=== PATIENT | female | born 1970 | race African-American/Black ===

== ENCOUNTER 2016-04-19 18:46 | Emergency (ER) | payer MEDICAID ==
[2016-04-19] MEDS ORDERED: ONDANSETRON 4 MG TAB.RAPDIS PO ONE (20:03)
--- NOTE | 2016-04-19 20:03 | ER Document Report ---
ED Medical Screen (RME) - General Chief Complaint: High Blood Sugar Stated Complaint: BLOOD SUGAR ISSUES,HEAD PAIN Notes: 45 yo IDDM, HTN, PTSD, Depresion c/o fluctuating blood sugars today. Highest blood sugar today 275. c/o headache, with left eye pain. + nausea, no vomiting. no fever TRAVEL OUTSIDE OF THE [place] IN LAST 30 DAYS: No - Related Data Allergies/Adverse Reactions: oxycodone HCl [From Percocet] Allergy (Severe, Verified 10/05/14 13:32) resp azithromycin [From Zithromax] Allergy (Intermediate, Verified 10/05/14 13:32) resp codeine phosphate [From Codeine Phosphate Soluble] Allergy (Intermediate, Verified 10/05/14 13:32) resp hydrocodone Allergy (Mild, Verified 10/05/14 13:32) Anaphylaxis hydrocodone bitartrate [From Vicodin] Allergy (Verified 10/05/14 13:32) resp Past Medical History - Social History Family history: Arthritis, CVA, DM, Hyperlipidemia, Hypertension, Malignancy, Thyroid Disfunction - Past Medical History Cardiac Medical History: Reports: Hx Hypertension Pulmonary Medical History: Reports: Hx Asthma Neurological Medical History: Reports: Hx Cerebrovascular Accident - 2005, Hx Migraine Endocrine Medical History: Reports: Hx Diabetes Mellitus Type 2 GI Medical History: Reports: Hx Gastroesophageal Reflux Disease Musculoskeltal Medical History: Reports Hx Arthritis - fingers, NECK, Reports Hx Musculoskeletal Trauma Psychiatric Medical History: Reports: Hx Anxiety, Hx Bipolar Disorder, Hx Depression, Hx Post Traumatic Stress Disorder Traumatic Medical History: Reports: Hx Fractures Past Surgical History: Reports: Hx Abdominal Surgery - EXPLORATORY, Hx Bowel Surgery, Hx Section - x4, Hx Cholecystectomy, Other - Multiple fatty tumors removed from different areas of her body all benign. Denies: Hx Pacemaker - Immunizations Immunizations up to date: Yes Hx Diphtheria, Pertussis, Tetanus Vaccination: Yes - UNSURE
[2016-04-19 20:40] LABS: ABSOLUTE EOSINOPHILS # (AUTO) 0.2 10^3/uL (0.0-0.6); ABSOLUTE LYMPHOCYTES (AUTO) 3.7 10^3/uL (0.5-4.7); ABSOLUTE MONOCYTES (AUTO) 0.5 10^3/uL (0.1-1.4); ABSOLUTE NEUT (AUTO) 3.9 10^3/uL (1.7-8.2); BASOPHILS % (AUTO) 0.5 % (0-2); EOSINOPHILS % (AUTO) 2.6 % (0-6); HEMATOCRIT 36.3 % (36.0-47.0); HGB HCT DIFFERENCE -0.3; LYMPHOCYTES % (AUTO) 44.7 % (13-45); MEAN CORPUSCULAR HEMOGLOBIN 28.6 pg (27.0-33.4); MEAN CORPUSCULAR HGB CONC 32.9 g/dL (32.0-36.0); MEAN CORPUSCULAR VOLUME 87 fl (80-97); MONOCYTES % (AUTO) 5.6 % (3-13); RED BLOOD COUNT 4.18 10^6/uL (3.72-5.28); SEGMENTED NEUTROPHILS % (AUTO) 46.6 % (42-78); WHITE BLOOD COUNT 8.3 10^3/uL (4.0-10.5)
[2016-04-19 20:49] LABS: APPEARANCE,URINE CLOUDY; BILIRUBIN,URINE NEGATIVE (NEGATIVE); GLUCOSE, URINE 50 mg/dL (NEGATIVE); KETONES,URINE NEGATIVE (NEGATIVE); LEUKOCYTE ESTERASE,URINE MODERATE (NEGATIVE); NITRITE,URINE POSITIVE (NEGATIVE); PROTEIN,URINE NEGATIVE (NEGATIVE); URINE SPECIFIC GRAVITY 1.013; UROBILINOGEN,URINE NEGATIVE mg/dL (<2.0)
[2016-04-19 21:01] LABS: BLOOD UREA NITROGEN 8 mg/dL (7-20); CALCIUM 9.2 mg/dL (8.4-10.2); CREATININE RESULT 0.71 mg/dL (0.52-1.25); GLUCOSE 200 mg/dL (75-110)
[2016-04-19 21:02] LABS: ALANINE AMINOTRANSFERASE 42 U/L (9-52); ALBUMIN 3.6 g/dL (3.5-5.0); ALKALINE PHOSPHATASE 95 U/L (38-126); ANION GAP 12 (5-19); ASPARTATE AMINO TRANSFERASE 21 U/L (14-36); BILIRUBIN,TOTAL 0.3 mg/dL (0.2-1.3); CARBON DIOXIDE 26 mmol/L (22-30); CHLORIDE 100 mmol/L (98-107); POTASSIUM 3.9 mmol/L (3.6-5.0); SODIUM 138.4 mmol/L (137-145); TOTAL PROTEIN 7.5 g/dL (6.3-8.2)
--- NOTE | 2016-04-19 23:40 | ER Document Report ---
ED General <ZAHRA ARTHUR - Last Filed: 04/20/16 00:16> - General Time seen by provider: 23:35 Mode of Arrival: Ambulatory Information source: Patient TRAVEL OUTSIDE OF THE [place] IN LAST 30 DAYS: No - HPI Onset: This afternoon - see HPI Onset/Duration: Sudden <SIMI SPRINGER - Last Filed: 04/20/16 01:25> - General Chief Complaint: High Blood Sugar Stated Complaint: BLOOD SUGAR ISSUES,HEAD PAIN Notes: Patient is a 45 year old female presenting to the emergency department complaining of a high blood glucose. Patient states that her blood glucose was 215 at home this afternoon. Patient states she took 37 units of levemier and mataformin 500mg PO at 11:00 today. Patient states her blood glucose has not gone down since taking these medications. Patient also reports headache, eye pain, and dizziness from her elevated blood glucose. Patient was seen on 03/24 for a UTI and was sent home with Macrobid. Patient is also nauseous. Patient's PCP is Dr. Stover in [place]; patient states that her PCP controls her diabetes care. (SIMI SPRINGER) - Related Data Allergies/Adverse Reactions: oxycodone HCl [From Percocet] Allergy (Severe, Verified 10/05/14 13:32) resp azithromycin [From Zithromax] Allergy (Intermediate, Verified 10/05/14 13:32) resp codeine phosphate [From Codeine Phosphate Soluble] Allergy (Intermediate, Verified 10/05/14 13:32) resp hydrocodone Allergy (Mild, Verified 10/05/14 13:32) Anaphylaxis hydrocodone bitartrate [From Vicodin] Allergy (Verified 10/05/14 13:32) resp Past Medical History - General Information source: Patient - Social History Smoking Status: Never Smoker Cigarette use (# per day): No Chew tobacco use (# tins/day): No Frequency of alcohol use: Rare Drug Abuse: None Family History: Arthritis, CVA, DM, Hyperlipidemia, Hypertension, Malignancy, Thyroid Disfunction - Past Medical History Cardiac Medical History: Reports: Hx Hypertension Pulmonary Medical History: Reports: Hx Asthma Neurological Medical History: Reports: Hx Cerebrovascular Accident - 2005, Hx Migraine Endocrine Medical History: Reports: Hx Diabetes Mellitus Type 2 GI Medical History: Reports: Hx Gastroesophageal Reflux Disease Musculoskeltal Medical History: Reports Hx Arthritis - fingers, NECK, Reports Hx Musculoskeletal Trauma Psychiatric Medical History: Reports: Hx Anxiety, Hx Bipolar Disorder, Hx Depression, Hx Post Traumatic Stress Disorder Traumatic Medical History: Reports: Hx Fractures Past Surgical History: Reports: Hx Abdominal Surgery - EXPLORATORY, Hx Bowel Surgery, Hx Section - x4, Hx Cholecystectomy, Other - Multiple fatty tumors removed from different areas of her body all benign. Denies: Hx Pacemaker - Immunizations Immunizations up to date: Yes Hx Diphtheria, Pertussis, Tetanus Vaccination: Yes - UNSURE <SIMI SPRINGER - Last Filed: 04/20/16 01:25> Review of Systems - Review of Systems Constitutional: See HPI, Malaise EENT: See HPI, Eye pain Cardiovascular: See HPI, Dizziness Respiratory: No symptoms reported Gastrointestinal: No symptoms reported Genitourinary: No symptoms reported Female Genitourinary: No symptoms reported Musculoskeletal: No symptoms reported Skin: No symptoms reported Hematologic/Lymphatic: See HPI Neurological/Psychological: See HPI, Headaches -: Yes All other systems reviewed and negative <SIMI SPRINGER - Last Filed: 04/20/16 01:25> Physical Exam - Vital signs Interpretation: Normal - General General appearance: Appears well, Alert In distress: None - HEENT Head: Normocephalic, Atraumatic Eyes: Normal Pupils: PERRL Mucous membranes: Normal - Respiratory Respiratory status: No respiratory distress Chest status: Nontender Breath sounds: Normal Chest palpation: Normal - Cardiovascular Rhythm: Regular Heart sounds: Normal auscultation - Abdominal Inspection: Obese Distension: No distension Bowel sounds: Normal Tenderness: Nontender Organomegaly: No organomegaly - Back Back: Normal, Nontender - Extremities General upper extremity: Normal inspection, Normal ROM, Normal strength General lower extremity: Normal inspection, Normal ROM, Normal strength - Neurological Neuro grossly intact: Yes Cognition: Normal Orientation: AAOx4 [place] Coma Scale Eye Opening: Spontaneous [place] Coma Scale Verbal: Oriented Sofi Coma Scale Motor: Obeys Commands Sofi Coma Scale Total: 15 Speech: Normal - Psychological Associated symptoms: Normal affect, Normal mood - Skin Skin Temperature: Warm Skin Moisture: Dry <SIMI SPRINGER - Last Filed: 04/20/16 01:25> - Vital signs Vitals: Temp Pulse Resp BP Pulse Ox 98.0 F 83 20 174/96 H 98 04/19/16 19:41 04/19/16 19:41 04/19/16 19:41 04/19/16 19:41 04/19/16 19:41 Course - Laboratory Result Diagrams: 04/19/16 20:15 04/19/16 20:15 <ZAHRA ARTHUR - Last Filed: 04/20/16 00:16> - Laboratory Result Diagrams: 04/19/16 20:15 04/19/16 20:15 <SIMI SPRINGER - Last Filed: 04/20/16 01:25> - Re-evaluation Re-evalutation: 04/20/16 00:16 Patient's blood pressure is elevated this evening. It has been elevated since since during her . She told the nurse tonight she doesn't have a history of high blood pressure, however review her record shows this is not true. He is again encouraged to follow-up with her primary care doctor or her [facility] doctor and be treated. (ZAHRA ARTHUR) - Vital Signs Vital signs: Temp Pulse Resp BP Pulse Ox 98.0 F 75 15 168/95 H 100 04/19/16 19:41 04/20/16 00:12 04/20/16 00:12 04/20/16 00:12 04/20/16 00:12 - Laboratory Laboratory results interpreted by me: 04/19/16 04/19/16 20:15 20:15 Glucose 200 H Urine Glucose (UA) 50 H Urine Blood SMALL H Urine Nitrite POSITIVE H Ur Leukocyte Esterase MODERATE H (ZAHRA ARTHUR) (SIMI SPRINGER) Scribe Documentation - Scribe Written by Scribe:: Simi Springer (04/20/16 00:10) acting as scribe for :: Agus <SIMI SPRINGER - Last Filed: 04/20/16 01:25>
[2016-04-19] MEDS ORDERED: CEPHALEXIN 500 MG CAPSULE PO ONE (23:41)
[2016-04-20 00:31] VITALS: BP 174/96
== END 2016-04-20 00:23 | disposition home or self-care (01) ==
LOC: ER 18:46
DX: N39.0 Urinary tract infection, site not specified (principal); R73.9 Hyperglycemia, unspecified; R03.0 Elevated blood-pressure reading, without diagnosis of hypertension; R51 Headache
CPT/HCPCS: 99283; 36415; 87086; 85025; 87088; 80053; 81001; 87186; S0119

== ENCOUNTER 2017-05-16 12:26 | Emergency (ER) | payer MEDICAID ==
[2017-05-16] MEDS ORDERED: KETOROLAC TROMETHAMINE 60 MG/2 ML SDV IM ONE (12:54)
--- NOTE | 2017-05-16 13:08 | ER Document Report ---
HPI - HPI Patient complains to provider of: Cough, sore throat Onset: Other - 4 days Onset/Duration: Persistent Quality of pain: Achy Pain Level: 4 Context: Patient presents with cough, congestion and sore throat for the past 4 days. Patient complains of voice hoarseness. Patient complains of reductive cough. Patient does report recent sick contacts. Associated Symptoms: Productive cough, Rhinnorhea, Sore throat. denies: Chest pain, Earache, Fever Exacerbated by: Coughing Relieved by: Denies Similar symptoms previously: Yes Recently seen / treated by doctor: No - ROS ROS below otherwise negative: Yes Systems Reviewed and Negative: Yes All other systems reviewed and negative - CONSTITUTIONAL Constitutional: REPORTS: Chills. DENIES: Fever - EENT EENT: REPORTS: Sore Throat, Nasal Drainage-Clear, Congestion - NEURO Neurology: DENIES: Headache - CARDIOVASCULAR Cardiovascular: DENIES: Chest pain - RESPIRATORY Respiratory: REPORTS: Coughing. DENIES: Trouble Breathing - GASTROINTESTINAL Gastrointestinal: DENIES: Nausea, Patient vomiting, Diarrhea - REPRODUCTIVE Reproductive: DENIES: : - MUSCULOSKELETAL Musculoskeletal: DENIES: Back Pain, Neck Pain - DERM Skin Color: Normal Skin Problems: None Past Medical History - General Information source: Patient - Social History Smoking Status: Never Smoker Frequency of alcohol use: None Drug Abuse: None Occupation: None Lives with: Family Family History: Arthritis, CVA, DM, Hyperlipidemia, Hypertension, Malignancy, Thyroid Disfunction - Past Medical History Cardiac Medical History: Reports: Hx Hypertension Pulmonary Medical History: Reports: Hx Asthma Neurological Medical History: Reports: Hx Cerebrovascular Accident - 2005, Hx Migraine Endocrine Medical History: Reports: Hx Diabetes Mellitus Type 2 GI Medical History: Reports: Hx Gastroesophageal Reflux Disease Musculoskeltal Medical History: Reports Hx Arthritis - fingers, NECK, Reports Hx Musculoskeletal Trauma Psychiatric Medical History: Reports: Hx Anxiety, Hx Bipolar Disorder, Hx Depression, Hx Post Traumatic Stress Disorder Traumatic Medical History: Reports: Hx Fractures Past Surgical History: Reports: Hx Abdominal Surgery - EXPLORATORY, Hx Bowel Surgery, Hx Section - x4, Hx Cholecystectomy, Other - Multiple fatty tumors removed from different areas of her body all benign. Denies: Hx Pacemaker - Immunizations Immunizations up to date: Yes Hx Diphtheria, Pertussis, Tetanus Vaccination: Yes - UNSURE Vertical Provider Document - CONSTITUTIONAL Agree With Documented VS: Yes Exam Limitations: No Limitations General Appearance: WD/WN, No Apparent Distress - INFECTION CONTROL TRAVEL OUTSIDE OF THE [place] IN LAST 30 DAYS: No - HEENT HEENT: Atraumatic, Normocephalic, Pharyngeal Tenderness, Pharyngeal Erythema. negative: Pharyngeal Exudate, Tympanic Membrane Red, Tympanic Membrane Bulging Notes: voice hoarse - NECK Neck: Lymphadenopathy-Left, Lymphadenopathy-Right - RESPIRATORY Respiratory: Breath Sounds Normal, No Respiratory Distress, Chest Non-Tender. negative: Rales, Rhonchi, Wheezing O2 Sat by Pulse Oximetry: 96 - CARDIOVASCULAR Cardiovascular: Regular Rate, Regular Rhythm, No Murmur - GI/ABDOMEN Gastrointestinal: Abdomen Soft - BACK Back: Normal Inspection - MUSCULOSKELETAL/EXTREMETIES Musculoskeletal/Extremeties: MAEW, FROM - NEURO Level of Consciousness: Awake, Alert, Appropriate Motor/Sensory: No Motor Deficit - DERM Integumentary: Warm, Dry, No Rash Course - Re-evaluation Re-evalutation: 05/16/17 14:[address] Resendiz regarding patient presentation. Patient with onset of symptoms 4 days ago. Patient has been afebrile and vital signs have been stable. Patient nontoxic in appearance. Will treat for presumptive pneumonia at this time. Good return precautions given to patient. - Vital Signs Vital signs: Temp Pulse Resp BP Pulse Ox 98.8 F 97 20 137/75 H 96 05/16/17 12:34 05/16/17 12:34 05/16/17 12:34 05/16/17 12:34 05/16/17 12:34 - Laboratory Laboratory results interpreted by me: 05/16/17 14:07 Labs- Entire Visit 05/16/17 13:00 Group A Strep Rapid NEGATIVE - Diagnostic Test Radiology reviewed: Reports reviewed Discharge - Discharge Clinical Impression: Sore throat Pneumonia Qualifiers: Pneumonia type: due to unspecified organism Laterality: bilateral Lung location : lower lobe of lung Qualified Code(s): J18.9 - Pneumonia, unspecified organism Condition: Stable Disposition: HOME, SELF-CARE Instructions: Doxycycline ([facility]), Pneumonia ([facility]), Rocephin ([facility]) Additional Instructions: Return immediately for any new or worsening symptoms Followup with your primary care provider, call tomorrow to make a followup appointment Prescriptions: Doxycycline Hyclate 100 mg PO BID #20 capsule Referrals: KATHIE GONZALEZ NP [Primary Care Provider] - Follow up tomorrow
--- NOTE | 2017-05-16 13:39 | RADIOLOGY REPORT (SQ) ---
EXAM DESCRIPTION: CHEST PA/LAT COMPLETED DATE/TIME: 05/16/2017 1:21 pm REASON FOR STUDY: cough COMPARISON: Two-view chest 07/11/2015 PA chest 04/17/2014 EXAM PARAMETERS: NUMBER OF VIEWS: two views TECHNIQUE: Digital Frontal and Lateral radiographic views of the chest acquired. RADIATION DOSE: NA LIMITATIONS: none FINDINGS: LUNGS AND PLEURA: Trace bilateral pleural effusions left greater than right. Minimal bibasilar airspace disease left greater than right, atelectasis versus pneumonia. No pneumothorax MEDIASTINUM AND HILAR STRUCTURES: No masses or contour abnormalities. HEART AND VASCULAR STRUCTURES: Borderline cardiomegaly BONES: No acute findings. HARDWARE: Clips right upper quadrant post cholecystectomy OTHER: No other significant finding. IMPRESSION: Trace bilateral pleural effusions left greater than right Bibasilar airspace disease atelectasis versus pneumonia, left greater than right TECHNICAL DOCUMENTATION: JOB ID: [id number] [employer]- All Rights Reserved
[2017-05-16] MEDS ORDERED: DOXYCYCLINE HYCLATE 100 MG TABLET PO ONE (13:57)
[2017-05-16] MEDS ORDERED: CEFTRIAXONE INJ 1000 MG VIAL IM ONE (13:57)
[2017-05-16] MEDS ORDERED: LIDOCAINE 1% INJ-PF (10 MG/ML) 30 ML SDV INJ ONE (13:57)
[2017-05-16 14:22] VITALS: BP 108/68
== END 2017-05-16 14:45 | disposition home or self-care (01) ==
LOC: ER 12:26
DX: J18.9 Pneumonia, unspecified organism (principal); J02.9 Acute pharyngitis, unspecified; R59.0 Localized enlarged lymph nodes; R05 Cough; R49.0 Dysphonia; J34.89 Other specified disorders of nose and nasal sinuses; I10 Essential (primary) hypertension; J45.909 Unspecified asthma, uncomplicated; E11.9 Type 2 diabetes mellitus without complications
CPT/HCPCS: 99284; 96372; 87070; 87880; 71046; J3490 ×2; J1885; J0696

== ENCOUNTER → 2017-07-30 | Outpatient (CLI) | payer MEDICAID ==
--- NOTE | 2017-07-30 13:21 | RADIOLOGY REPORT (SQ) ---
EXAM DESCRIPTION: HIP BILATERAL COMPLETED DATE/TIME: 07/30/2017 11:55 am REASON FOR STUDY: HIP PAIN M54.16 RADICULOPATHY, LUMBAR REGION COMPARISON: None. NUMBER OF VIEWS: Two views TECHNIQUE: AP pelvis and additional frog-leg view of both hips. LIMITATIONS: None. FINDINGS: MINERALIZATION: Normal. HIPS: No acute fracture or dislocation. No worrisome bone lesions. PELVIS AND SACRUM: No acute fracture or dislocation. No worrisome bone lesions. PUBIS AND ISCHIUM: No acute fracture. LOWER LUMBAR SPINE: No significant findings as visualized. SOFT TISSUES: No findings. OTHER: No other significant finding. IMPRESSION: NEGATIVE STUDY OF THE PELVIS AND HIPS. TECHNICAL DOCUMENTATION: JOB ID: [id number] [employer]- All Rights Reserved Reading location - IP/workstation name: [email or web address]
--- NOTE | 2017-07-30 15:19 | RADIOLOGY REPORT (SQ) ---
EXAM DESCRIPTION: NM BONE SCAN LIMITED COMPLETED DATE/TIME: 07/30/2017 2:54 pm REASON FOR STUDY: RADICULOPATHY, LUMBAR REGION M54.16 RADICULOPATHY, LUMBAR REGION COMPARISON: Hip radiographs 07/30/2017, additional prior imaging studies. RADIONUCLIDE AND DOSE: 20 millicuries Tc99m HDP. The route of agent administration: Intravenous. ADDITIONAL DRUGS AND DOSES: None. TECHNIQUE: Routine delayed images at 3 hours post radionuclide injection acquired of the bony skelet on including anterior and posterior whole-body projections and additional focused images as needed. LIMITATIONS: None. FINDINGS: BONES: Normal visualization without areas of photopenia or increased bony uptake of radiop harmaceutical. KIDNEYS: Symmetric excretion without obstruction. OTHER: No other significant finding. IMPRESSION: NORMAL BONE SCAN. COMMENT: Quality measure 147: Current bone scan is compared with any available plain radiographs, p rior bone scans, and CT/MRI. TECHNICAL DOCUMENTATION: JOB ID: [id number] [employer]- All Rights Reserved Reading location - IP/workstation name: [email or web address]
== END ==
LOC: RAD 10:51
PROVIDERS: ATTEND Specialist
DX: M54.16 Radiculopathy, lumbar region (principal); M25.552 Pain in left hip; M25.551 Pain in right hip
CPT/HCPCS: 73522; 78305; A9561; Q9969

== ENCOUNTER 2017-08-19 22:56 | Emergency (ER) | payer MEDICAID ==
--- NOTE | 2017-08-20 00:11 | ER Document Report ---
ED General - General Chief Complaint: Possible Overdose Stated Complaint: POSSIBLE OVERDOSE Time Seen by Provider: 08/19/17 23:50 Notes: Patient is a 46-year-old female who presents with complaint of accidentally taking double doses of all her nighttime medications. This includes Ativan, Phenergan, trazodone, and Actos. Patient says that she had forgotten that she had taken her medication and took a second dosage of all these medications at night. She notes she was feeling more sleepy than usual then realized what she had done. She had no intention of hurting himself. She did eat dinner tonight. She denies any vomiting or diarrhea. She denies any pain. She states she just feels sleepy. TRAVEL OUTSIDE OF THE [place] IN LAST 30 DAYS: No - Related Data Allergies/Adverse Reactions: oxycodone HCl [From Percocet] Allergy (Severe, Verified 08/19/17 23:10) resp azithromycin [From Zithromax] Allergy (Intermediate, Verified 08/19/17 23:10) resp codeine phosphate [From Codeine Phosphate Soluble] Allergy (Intermediate, Verified 08/19/17 23:10) resp hydrocodone Allergy (Mild, Verified 08/19/17 23:10) Anaphylaxis hydrocodone bitartrate [From Vicodin] Allergy (Verified 08/19/17 23:10) resp Past Medical History - Social History Smoking Status: Unknown if Ever Smoked Frequency of alcohol use: None Drug Abuse: None Family History: Arthritis, CVA, DM, Hyperlipidemia, Hypertension, Malignancy, Thyroid Disfunction - Past Medical History Cardiac Medical History: Reports: Hx Hypertension Pulmonary Medical History: Reports: Hx Asthma Neurological Medical History: Reports: Hx Cerebrovascular Accident - 2005, Hx Migraine Endocrine Medical History: Reports: Hx Diabetes Mellitus Type 2 Renal/ Medical History: Denies: Hx Peritoneal Dialysis GI Medical History: Reports: Hx Gastroesophageal Reflux Disease Musculoskeltal Medical History: Reports Hx Arthritis - fingers, NECK, Reports Hx Musculoskeletal Trauma Psychiatric Medical History: Reports: Hx Anxiety, Hx Bipolar Disorder, Hx Depression, Hx Post Traumatic Stress Disorder Traumatic Medical History: Reports: Hx Fractures Past Surgical History: Reports: Hx Abdominal Surgery - EXPLORATORY, Hx Bowel Surgery, Hx Section - x4, Hx Cholecystectomy, Other - Multiple fatty tumors removed from different areas of her body all benign. Denies: Hx Pacemaker - Immunizations Immunizations up to date: Yes Hx Diphtheria, Pertussis, Tetanus Vaccination: Yes - UNSURE Review of Systems - Review of Systems Notes: My Normal Review Basic REVIEW OF SYSTEMS: CONSTITUTIONAL : Denies fever, chills, or sweats. Denies recent illness. EENT: Denies eye, ear, throat, or mouth pain or symptoms. Denies nasal or sinus congestion. CARDIOVASCULAR: Denies chest pain. RESPIRATORY: Denies cough, cold, or chest congestion. Denies shortness of breath, difficulty breathing, or wheezing. GASTROINTESTINAL: Denies abdominal pain. Denies nausea, vomiting, or diarrhea. Denies constipation. Last BM: MUSCULOSKELETAL: Denies neck or back pain or joint pain or swelling. SKIN: Denies rash or skin lesions. NEUROLOGICAL: Denies altered mental status or loss of consciousness. Denies headache. Denies weakness or paralysis or loss of use of either side. Denies problems with gait or speech. Denies sensory or motor loss. ALL OTHER SYSTEMS REVIEWED AND NEGATIVE. Physical Exam - Vital signs Vitals: Temp Pulse Resp BP Pulse Ox 97.9 F 108 H 18 112/63 95 08/19/17 23:20 08/19/17 23:20 08/19/17 23:20 08/19/17 23:20 08/19/17 23:20 - Notes Notes: General Appearance: Well nourished, alert but somnolent, cooperative, no acute distress, no obvious discomfort. Vitals: reviewed, See vital signs table. Head: no swelling or tenderness to the head Eyes: PERRL, EOMI, Conjuctiva clear Mouth: No decreasd moisture Lungs: No wheezing, No rales, No rhonci, No accessory muscle use, good air exchange bilaterally. Heart: Normal rate, Regular rythm, No murmur, no rub Abdomen: Normal BS, soft, No rigidity, No abdominal tenderness, No guarding, no rebound, no abdominal masses, no organomegaly Extremities: strength 5/5 in all extremities, good pulses in all extremities, no swelling or tenderness in the extremities, no edema. Skin: warm, dry, appropriate color, no rash Neuro: speech clear, oriented x 3, awake but somnolent, responds appropriately to questions. Cranial nerves II through XII are intact. Patient was able stand on her own power without any difficulty. No abnormal coordination movements. No focal neurologic deficits. Course - Re-evaluation Re-evalutation: 08/20/17 06:09 Patient's blood sugars have remained normal throughout the night. She is up and walking without difficulty. Her oxygen saturation is 100%. I feel she is safe to be discharged home. Patient encouraged to be very careful about how much medication she takes. Patient encouraged to return to ER if she has difficulty breathing, feels lightheaded or unwell, or she has any further concerns. Patient agrees with plan will be discharged home. Dictation of this chart was performed using voice recognition software; therefore, there may be some unintended grammatical errors. - Vital Signs Vital signs: Temp Pulse Resp BP Pulse Ox 97.9 F 108 H 19 134/85 H 98 08/19/17 23:20 08/19/17 23:20 08/20/17 05:01 08/20/17 05:01 08/20/17 05:01 - Laboratory Laboratory results interpreted by me: 08/20/17 08/20/17 08/20/17 00:01 01:06 02:03 POC Glucose 150 H 125 H 120 H 08/20/17 05:12 POC Glucose 137 H Discharge - Discharge Clinical Impression: Overdose Qualifiers: Encounter type: initial encounter Injury intent: accidental or unintentional Qualified Code(s): T50.901A - Poisoning by unspecified drugs, medicaments and biological substances, accidental (unintentional), initial encounter Condition: Good Disposition: HOME, SELF-CARE Additional Instructions: Please keep a careful log of when you take your medications so that you do not accidentally overdose as overdosing on your meds can cause you to stop breathing and as drop your blood sugar down to fatally low levels. Please return to the ER if you feel unwell or have further concerns. Referrals: KATHIE GONZALEZ, [place] [Primary Care Provider] - Follow up as needed
[2017-08-20 06:10] VITALS: BP 142/89
== END 2017-08-20 06:16 | disposition home or self-care (01) ==
LOC: ER 22:56
DX: T42.4X1A Poisoning by benzodiazepines, accidental (unintentional), initial encounter (principal); T43.211A Poisoning by selective serotonin and norepinephrine reuptake inhibitors, accidental (unintentional), initial encounter; T38.3X1A Poisoning by insulin and oral hypoglycemic [antidiabetic] drugs, accidental (unintentional), initial encounter; Y92.009 Unspecified place in unspecified non-institutional (private) residence as the place of occurrence of the external cause; I10 Essential (primary) hypertension; Z88.3 Allergy status to other anti-infective agents; Z86.73 Personal history of transient ischemic attack (TIA), and cerebral infarction without residual deficits; Z90.49 Acquired absence of other specified parts of digestive tract
CPT/HCPCS: 82962; 99284

== ENCOUNTER 2017-08-31 20:54 | Emergency (ER) | payer MEDICAID ==
--- NOTE | 2017-08-31 23:56 | ER Document Report ---
ED General - General Chief Complaint: Leg Swelling Stated Complaint: LEG PAIN/SWELLING Time Seen by Provider: 08/31/17 22:49 Notes: Patient is a 46-year-old female with past medical history of non-insulin- dependent type II by diabetes, hypertension, morbid obesity who presents with 2- 3 months of bilateral lower extremity edema. Patient reports nothing is new or different about the edema today that caused her to present to the emergency department. She states however that there is an associated dull, throbbing, constant pain to the legs that has been progressively worsening since it started. Nothing seems to improve or worsen her symptoms. She denies a history of similar symptoms prior to the past 2-3 months. She has not seen her primary doctor regarding today's concerns. She denies any known history of chronic kidney disease, liver failure, congestive heart failure or venous thromboses in the past. TRAVEL OUTSIDE OF THE [place] IN LAST 30 DAYS: No - Related Data Allergies/Adverse Reactions: oxycodone HCl [From Percocet] Allergy (Severe, Verified 08/19/17 23:10) resp azithromycin [From Zithromax] Allergy (Intermediate, Verified 08/19/17 23:10) resp codeine phosphate [From Codeine Phosphate Soluble] Allergy (Intermediate, Verified 08/19/17 23:10) resp hydrocodone Allergy (Mild, Verified 08/19/17 23:10) Anaphylaxis hydrocodone bitartrate [From Vicodin] Allergy (Verified 08/19/17 23:10) resp Past Medical History - General Information source: Patient - Social History Smoking Status: Never Smoker Chew tobacco use (# tins/day): No Frequency of alcohol use: None Drug Abuse: None Lives with: Spouse/Significant other Family History: Arthritis, CVA, DM, Hyperlipidemia, Hypertension, Malignancy, Thyroid Disfunction Patient has suicidal ideation: No Patient has homicidal ideation: No - Past Medical History Cardiac Medical History: Reports: Hx Hypertension Pulmonary Medical History: Reports: Hx Asthma Neurological Medical History: Reports: Hx Cerebrovascular Accident - 2005, Hx Migraine Endocrine Medical History: Reports: Hx Diabetes Mellitus Type 2 Renal/ Medical History: Denies: Hx Peritoneal Dialysis GI Medical History: Reports: Hx Gastroesophageal Reflux Disease Musculoskeltal Medical History: Reports Hx Arthritis - fingers, NECK, Reports Hx Musculoskeletal Trauma Psychiatric Medical History: Reports: Hx Anxiety, Hx Bipolar Disorder, Hx Depression, Hx Post Traumatic Stress Disorder Traumatic Medical History: Reports: Hx Fractures Past Surgical History: Reports: Hx Abdominal Surgery - EXPLORATORY, Hx Bowel Surgery, Hx Section - x4, Hx Cholecystectomy, Other - Multiple fatty tumors removed from different areas of her body all benign. Denies: Hx Pacemaker - Immunizations Immunizations up to date: Yes Hx Diphtheria, Pertussis, Tetanus Vaccination: Yes - UNSURE Review of Systems - Review of Systems Notes: Constitutional: Negative for fever. HENT: Negative for sore throat. Eyes: Negative for visual changes. Cardiovascular: Negative for chest pain. Respiratory: Negative for shortness of breath. Gastrointestinal: Negative for abdominal pain, vomiting or diarrhea. Genitourinary: Negative for dysuria. Musculoskeletal: Positive for bilateral lower extremity edema and pain Skin: Negative for rash. Neurological: Negative for headaches, weakness or numbness. 10 point ROS negative except as marked above and in HPI. Physical Exam - Vital signs Vitals: Temp Pulse BP Pulse Ox 98.8 F 107 H 152/83 H 96 08/31/17 21:28 08/31/17 21:28 08/31/17 21:28 08/31/17 21:28 Interpretation: Hypertensive Notes: PHYSICAL EXAMINATION: GENERAL: Well-appearing, well-nourished and in no acute distress. HEAD: Atraumatic, normocephalic. EYES: Pupils equal round and reactive to light, extraocular movements intact, sclera anicteric, conjunctiva are normal. ENT: nares patent, oropharynx clear without exudates. Moist mucous membranes. NECK: Normal range of motion, supple without lymphadenopathy LUNGS: Breath sounds clear to auscultation bilaterally and equal. No wheezes rales or rhonchi. HEART: Regular rate and rhythm without murmurs ABDOMEN: Soft, morbidly obese abdomen, nontender, normoactive bowel sounds. No guarding, no rebound. No masses appreciated. EXTREMITIES: Normal range of motion, 3+ pitting edema in the bilateral lower extremities that is equal and symmetric. No cyanosis. NEUROLOGICAL: No focal neurological deficits. Moves all extremities spontaneously and on command. PSYCH: Normal mood, normal affect. SKIN: Warm, Dry, normal turgor, no rashes or lesions noted. Course - Re-evaluation Re-evalutation: 08/31/17 23:55 Patient presents with bilateral lower extremity swelling and edema for the past 2-3 months unchanged today. She denies any concomitant symptoms. Exam is notable for 3+ pitting edema that is equal and symmetric in the bilateral lower extremities. She denies any known history of congestive heart failure, renal failure, hepatic failure or venous thromboses in the past. The edema is equal and symmetric in the bilateral extremities making an acute DVT unlikely. Patient denies any additional symptoms that would suggest a congestive picture, renal failure and hepatic failure. Will proceed with basic laboratories to exclude these more concerning etiologies and if this is unremarkable I have discussed the patient that her morbid obesity is likely contributing to her bilateral lower extremities secondary to venous compression and have recommended compression stockings, weight loss and outpatient follow-up. - Vital Signs Vital signs: Temp Pulse Resp BP Pulse Ox 98.3 F 100 18 128/72 H 97 09/01/17 02:12 09/01/17 02:12 09/01/17 02:12 09/01/17 02:12 09/01/17 02:12 - Laboratory Result Diagrams: 09/01/17 01:09 09/01/17 01:09 Laboratory results interpreted by me: 09/01/17 09/01/17 01:09 01:09 RBC 3.64 L Hgb 10.9 L Hct 32.7 L RDW 14.2 H Glucose 228 H - EKG Interpretation by Me Additional EKG results interpreted by me: 09/01/17 01:48 Sinus tachycardia. Rate 106. No ST elevations or depressions. QTC is 441. Discharge - Discharge Clinical Impression: Lower extremity edema, Morbid obesity Type 2 diabetes mellitus Qualifiers: Diabetes mellitus skilled nursing insulin use: without skilled nursing use Diabetes mellitus complication status: with unspecified complications Qualified Code(s): E11.8 - Type 2 diabetes mellitus with unspecified complications Condition: Good Disposition: HOME, SELF-CARE Additional Instructions: Your seen today for swelling of her legs which is likely due to being overweight and uncontrolled diabetes. Please with compression stockings that were provided to help reduce the swelling in your legs. The remainder of your labs are normal with exception of high blood sugar. Return if you become short of breath, have chest pain, pass out, or have any other symptoms that are worrisome to you. As we discussed today, please strongly consider losing weight. Your obesity will result in a shorter life and serious diagnoses including heart attacks, stroke, diabetes, high blood pressure, high cholesterol, kidney failure, and will also result in a much less enjoyable life due to these chronic conditions. Focus on gradual life style changes including removing sugared beverages and processed foods from your diet and at least 30 minutes of moderate activity daily. Try to target 4-5lbs of weight loss per month.
[2017-09-01 01:19] LABS: ABSOLUTE EOSINOPHILS # (AUTO) 0.1 10^3/uL (0.0-0.6); ABSOLUTE LYMPHOCYTES (AUTO) 3.2 10^3/uL (0.5-4.7); ABSOLUTE MONOCYTES (AUTO) 0.4 10^3/uL (0.1-1.4); ABSOLUTE NEUT (AUTO) 3.4 10^3/uL (1.7-8.2); BASOPHILS % (AUTO) 0.6 % (0-2); HEMATOCRIT 32.7 % (36.0-47.0); HEMOGLOBIN 10.9 g/dL (12.0-15.5); LYMPHOCYTES % (AUTO) 44.1 % (13-45); MEAN CORPUSCULAR HGB CONC 33.4 g/dL (32.0-36.0); MEAN CORPUSCULAR VOLUME 90 fl (80-97); MONOCYTES % (AUTO) 6.2 % (3-13); PLATELET COUNT 209 10^3/uL (150-450); RED BLOOD COUNT 3.64 10^6/uL (3.72-5.28); RED CELL DISTRIBUTION WIDTH 14.2 % (11.5-14.0); SEGMENTED NEUTROPHILS % (AUTO) 47.1 % (42-78); TOTAL CELLS COUNTED % (AUTO) 100 %; WHITE BLOOD COUNT 7.1 10^3/uL (4.0-10.5)
[2017-09-01 01:40] LABS: ANION GAP 13 (5-19); BLOOD UREA NITROGEN 10 mg/dL (7-20); CARBON DIOXIDE 24 mmol/L (22-30); CHLORIDE 106 mmol/L (98-107); GLUCOSE 228 mg/dL (75-110); POTASSIUM 3.8 mmol/L (3.6-5.0); SODIUM 143.3 mmol/L (137-145)
[2017-09-01 02:13] VITALS: BP 128/72
--- NOTE | 2017-09-01 20:51 | EKG REPORT ---
SEVERITY:- OTHERWISE NORMAL ECG - SINUS TACHYCARDIA : Confirmed by: Efraín Ho 01-Sep-2017 17:50:57
== END 2017-09-01 02:13 | disposition home or self-care (01) ==
LOC: ER 20:54
DX: R60.9 Edema, unspecified (principal); E66.01 Morbid (severe) obesity due to excess calories; E11.8 Type 2 diabetes mellitus with unspecified complications; I10 Essential (primary) hypertension; Z88.6 Allergy status to analgesic agent; Z88.3 Allergy status to other anti-infective agents
CPT/HCPCS: 36415; 80048; 83880; 85025; 93005; 93010; 99284

== ENCOUNTER 2017-09-20 15:24 | Emergency (ER) | payer MEDICAID ==
--- NOTE | 2017-09-20 16:18 | ER Document Report ---
ED Medical Screen (RME) - General Chief Complaint: Headache Stated Complaint: HEADACHE, NO APPETITE Time Seen by Provider: 09/20/17 16:02 Notes: 46 year old insulin dependant type 2 diabetic female presents stating that she thinks her insulin pen has not been working well for the past 2 weeks and she is concerned that is making all of her chronic problems worse. Patient states that she has been using her insulin pen but she does not think all of the insulin is coming out. States that she has had vision that is blurrier than usual for the past 2 weeks, chronic abdominal pain that is worse than usual for the past 2 weeks and headaches that are worse than usual for the past 2 weeks, states they are usually occipital and now they are frontal. Denies any fevers, admits chronic nausea with increased vomiting. TRAVEL OUTSIDE OF THE [place] IN LAST 30 DAYS: No - Related Data Allergies/Adverse Reactions: oxycodone HCl [From Percocet] Allergy (Severe, Verified 08/19/17 23:10) resp azithromycin [From Zithromax] Allergy (Intermediate, Verified 08/19/17 23:10) resp codeine phosphate [From Codeine Phosphate Soluble] Allergy (Intermediate, Verified 08/19/17 23:10) resp hydrocodone Allergy (Mild, Verified 08/19/17 23:10) Anaphylaxis hydrocodone bitartrate [From Vicodin] Allergy (Verified 08/19/17 23:10) resp Past Medical History - General Information source: Patient - Social History Chew tobacco use (# tins/day): No Frequency of alcohol use: None Drug Abuse: None Family history: Arthritis, CVA, DM, Hyperlipidemia, Hypertension, Malignancy, Thyroid Disfunction - Past Medical History Cardiac Medical History: Reports: Hx Hypertension Pulmonary Medical History: Reports: Hx Asthma Neurological Medical History: Reports: Hx Cerebrovascular Accident - 2005, Hx Migraine Endocrine Medical History: Reports: Hx Diabetes Mellitus Type 2 Renal/ Medical History: Denies: Hx Peritoneal Dialysis GI Medical History: Reports: Hx Gastroesophageal Reflux Disease Musculoskeltal Medical History: Reports Hx Arthritis - fingers, NECK, Reports Hx Musculoskeletal Trauma Psychiatric Medical History: Reports: Hx Anxiety, Hx Bipolar Disorder, Hx Depression, Hx Post Traumatic Stress Disorder Traumatic Medical History: Reports: Hx Fractures Past Surgical History: Reports: Hx Abdominal Surgery - EXPLORATORY, Hx Bowel Surgery, Hx Section - x4, Hx Cholecystectomy, Other - Multiple fatty tumors removed from different areas of her body all benign. Denies: Hx Pacemaker - Immunizations Immunizations up to date: Yes Hx Diphtheria, Pertussis, Tetanus Vaccination: Yes - UNSURE Review of Systems - Review of Systems Constitutional: Malaise, Weakness EENT: See HPI Cardiovascular: No symptoms reported Gastrointestinal: See HPI, Nausea, Vomiting Physical Exam - Vital signs Vitals: Temp Pulse Resp BP Pulse Ox 98.8 F 112 H 16 140/89 H 97 09/20/17 15:34 09/20/17 15:34 09/20/17 15:34 09/20/17 15:34 09/20/17 15:34 Interpretation: Tachycardic - General General appearance: Alert - HEENT Head: Normocephalic, Atraumatic Eyes: Normal Pupils: PERRL - Respiratory Respiratory status: No respiratory distress Chest status: Nontender Breath sounds: Normal Chest palpation: Normal - Cardiovascular Rhythm: Regular, Tachycardia Heart sounds: Normal auscultation Murmur: No Course - Vital Signs Vital signs: Temp Pulse Resp BP Pulse Ox 98.8 F 112 H 16 140/89 H 97 09/20/17 15:34 09/20/17 15:34 09/20/17 15:34 09/20/17 15:34 09/20/17 15:34 Doctor's Discharge - Discharge Referrals: KATHIE GONZALEZ [employer] [Primary Care Provider] - Follow up as needed
[2017-09-20 17:19] LABS: ABSOLUTE BASOPHILS # (AUTO) 0.1 10^3/uL (0.0-0.2); ABSOLUTE EOSINOPHILS # (AUTO) 0.1 10^3/uL (0.0-0.6); ABSOLUTE LYMPHOCYTES (AUTO) 3.4 10^3/uL (0.5-4.7); ABSOLUTE MONOCYTES (AUTO) 0.4 10^3/uL (0.1-1.4); ABSOLUTE NEUT (AUTO) 3.8 10^3/uL (1.7-8.2); BASOPHILS % (AUTO) 0.9 % (0-2); EOSINOPHILS % (AUTO) 1.2 % (0-6); HEMATOCRIT 36.1 % (36.0-47.0); HEMOGLOBIN 11.9 g/dL (12.0-15.5); LYMPHOCYTES % (AUTO) 44.2 % (13-45); MEAN CORPUSCULAR HEMOGLOBIN 29.2 pg (27.0-33.4); MEAN CORPUSCULAR VOLUME 89 fl (80-97); MONOCYTES % (AUTO) 5.3 % (3-13); PLATELET COUNT 253 10^3/uL (150-450); RED BLOOD COUNT 4.08 10^6/uL (3.72-5.28); RED CELL DISTRIBUTION WIDTH 14.1 % (11.5-14.0); SEGMENTED NEUTROPHILS % (AUTO) 48.4 % (42-78); TOTAL CELLS COUNTED % (AUTO) 100 %; WHITE BLOOD COUNT 7.8 10^3/uL (4.0-10.5)
[2017-09-20 17:20] LABS: VENOUS BLOOD BASE EXCESS -3.3 mmol/L; VENOUS BLOOD HCO3 22.1 mmol/L (20-32); VENOUS BLOOD PCO2 40.7 mmHg (35-63); VENOUS BLOOD PH 7.35 (7.30-7.42)
[2017-09-20 17:38] LABS: ALANINE AMINOTRANSFERASE 45 U/L (9-52); ALBUMIN 4.1 g/dL (3.5-5.0); ALKALINE PHOSPHATASE 89 U/L (38-126); ANION GAP 14 (5-19); ASPARTATE AMINO TRANSFERASE 34 U/L (14-36); BILIRUBIN,DIRECT 0.3 mg/dL (0.0-0.4); BILIRUBIN,TOTAL 0.4 mg/dL (0.2-1.3); BLOOD UREA NITROGEN 5 mg/dL (7-20); CALCIUM 9.6 mg/dL (8.4-10.2); CARBON DIOXIDE 22 mmol/L (22-30); CHLORIDE 108 mmol/L (98-107); GLUCOSE 215 mg/dL (75-110); POTASSIUM 3.5 mmol/L (3.6-5.0); TOTAL PROTEIN 8.3 g/dL (6.3-8.2)
[2017-09-20 17:39] LABS: APPEARANCE,URINE SLIGHTLY-CLOUDY; BILIRUBIN,URINE NEGATIVE (NEGATIVE); COLOR,URINE YELLOW; GLUCOSE, URINE >=500 mg/dL (NEGATIVE); KETONES,URINE NEGATIVE (NEGATIVE); LEUKOCYTE ESTERASE,URINE NEGATIVE (NEGATIVE); NITRITE,URINE NEGATIVE (NEGATIVE); PROTEIN,URINE 30 mg/dL (NEGATIVE); URINE SPECIFIC GRAVITY 1.024
[2017-09-20] MEDS ORDERED: POTASSIUM CHLORIDE 10 MEQ TABLET.SA PO ONE (19:27)
[2017-09-20] MEDS ORDERED: NORMAL SALINE 1000 ML 1,000 ML IV ONE (19:27)
--- NOTE | 2017-09-20 19:31 | ER Document Report ---
ED General - General Chief Complaint: Headache Stated Complaint: HEADACHE, NO APPETITE Time Seen by Provider: 09/20/17 16:02 Notes: Patient is a 46 year old female that comes emergency department for chief complaints of possible blood sugar abnormalities. She states for the past 2 weeks she has had more frequent headaches, more frequent chronic abdominal pain , and reduced appetite. She denies weight changes, fever, chest pain, shortness of breath, current headache. She states she is on metformin and was placed on insulin but was prescribed the wrong insulin needles and therefore cannot take her insulin. Past medical history of insulin-dependent diabetes, hypertension, bipolar, anxiety, PTSD, cholecystectomy, chronic abdominal pain. TRAVEL OUTSIDE OF THE [place] IN LAST 30 DAYS: No - Related Data Allergies/Adverse Reactions: oxycodone HCl [From Percocet] Allergy (Severe, Verified 08/19/17 23:10) resp azithromycin [From Zithromax] Allergy (Intermediate, Verified 08/19/17 23:10) resp codeine phosphate [From Codeine Phosphate Soluble] Allergy (Intermediate, Verified 08/19/17 23:10) resp hydrocodone Allergy (Mild, Verified 08/19/17 23:10) Anaphylaxis hydrocodone bitartrate [From Vicodin] Allergy (Verified 08/19/17 23:10) resp Past Medical History - General Information source: Patient - Social History Smoking Status: Never Smoker Chew tobacco use (# tins/day): No Frequency of alcohol use: None Drug Abuse: None Family History: Arthritis, CVA, DM, Hyperlipidemia, Hypertension, Malignancy, Thyroid Disfunction Patient has suicidal ideation: No Patient has homicidal ideation: No - Past Medical History Cardiac Medical History: Reports: Hx Hypertension Pulmonary Medical History: Reports: Hx Asthma Neurological Medical History: Reports: Hx Cerebrovascular Accident - 2005, Hx Migraine Endocrine Medical History: Reports: Hx Diabetes Mellitus Type 2 Renal/ Medical History: Denies: Hx Peritoneal Dialysis GI Medical History: Reports: Hx Gastroesophageal Reflux Disease Musculoskeltal Medical History: Reports Hx Arthritis - fingers, NECK, Reports Hx Musculoskeletal Trauma Psychiatric Medical History: Reports: Hx Anxiety, Hx Bipolar Disorder, Hx Depression, Hx Post Traumatic Stress Disorder Traumatic Medical History: Reports: Hx Fractures Past Surgical History: Reports: Hx Abdominal Surgery - EXPLORATORY, Hx Bowel Surgery, Hx Section - x4, Hx Cholecystectomy, Other - Multiple fatty tumors removed from different areas of her body all benign. Denies: Hx Pacemaker - Immunizations Immunizations up to date: Yes Hx Diphtheria, Pertussis, Tetanus Vaccination: Yes - UNSURE Review of Systems - Review of Systems Constitutional: See HPI EENT: No symptoms reported Cardiovascular: No symptoms reported Respiratory: No symptoms reported Gastrointestinal: See HPI Genitourinary: No symptoms reported Female Genitourinary: No symptoms reported Musculoskeletal: No symptoms reported Skin: No symptoms reported Hematologic/Lymphatic: No symptoms reported Neurological/Psychological: No symptoms reported Physical Exam - Vital signs Vitals: Temp Pulse Resp BP Pulse Ox 98.8 F 112 H 16 140/89 H 97 09/20/17 15:34 09/20/17 15:34 09/20/17 15:34 09/20/17 15:34 09/20/17 15:34 - Notes Notes: GENERAL: Alert, interacts well. No acute distress. HEAD: Normocephalic, atraumatic. EYES: Pupils equal, round, and reactive to light. Extraocular movements intact. ENT: Oral mucosa dry, tongue midline. NECK: Full range of motion. Supple. Trachea midline. LUNGS: Clear to auscultation bilaterally, no wheezes, rales, or rhonchi. No respiratory distress. HEART: Regular rate and rhythm. No murmur. No tachycardia on my exam. ABDOMEN: Soft, non-tender. Non-distended. Bowel sounds present in all 4 quadrants. EXTREMITIES: Moves all 4 extremities spontaneously. No edema, normal radial and dorsalis pedis pulses bilaterally. No cyanosis. BACK: no cervical, thoracic, lumbar midline tenderness. No saddle anesthesia, normal distal neurovascular exam. NEUROLOGICAL: Alert and oriented x3. Normal speech. [cranial nerves II through XII grossly intact]. PSYCH: Normal affect, normal mood. SKIN: Warm, dry, normal turgor. No rashes or lesions noted. Course - Re-evaluation Re-evalutation: CBC unremarkable, glucose is only 215, normal anion gap, normal bicarbonate, no evidence of acidosis including no ketones in the urine. Elevated specific gravity in the urine, patient has dry mucous membranes on exam and mild tachycardia, this resolved with IV fluids. Mild hypokalemia, given a dose here , she is on 20 mg of Lasix daily, discussed with patient, she will try to increase potassium in her diet first. Patient with no complaints at this time. Able to obtain a small number of insulin needles for patient to use at home, she will follow-up with her primary for additional supplies, discussed insulin use, hydration, follow-up, return precautions in detail. Patient requesting Zofran to take just as needed for chronic abdominal pain and nausea, states she likes better than Phenergan and she only has Phenergan right now. She was provided with this. Answered questions for family. Patient and family state understanding and agreement with plan. - Vital Signs Vital signs: Temp Pulse Resp BP Pulse Ox 97.8 F 94 16 151/88 H 97 09/20/17 20:48 09/20/17 20:48 09/20/17 20:48 09/20/17 20:48 09/20/17 20:48 - Laboratory Result Diagrams: 09/20/17 16:51 09/20/17 16:51 Laboratory results interpreted by me: 09/20/17 09/20/17 09/20/17 16:51 16:51 16:51 Hgb 11.9 L RDW 14.1 H Potassium 3.5 L Chloride 108 H BUN 5 L Glucose 215 H Total Protein 8.3 H Urine Protein 30 H Urine Glucose (UA) >=500 H Urine Urobilinogen 4.0 H Discharge - Discharge Clinical Impression: Insulin dependent diabetes mellitus, Hypokalemia Condition: Stable Disposition: HOME, SELF-CARE Additional Instructions: You have been provided with insulin needles supply, please contact your provider for additional supplies and management. Your potassium was low, this was supplemented, increase potassium in your diet, this was probably low because of your Lasix use. He might need a potassium supplement future, have your chemistry rechecked with your provider in close follow-up. Use zofran if needed for nausea. Return for any concerning symptoms including vomiting, fever, or any other concerning or worsening symptoms. Prescriptions: Ondansetron [Zofran Odt 4 mg Tablet] 1 - 2 tab PO Q4H PRN #20 tab.rapdis PRN Reason: For Nausea/Vomiting Forms: Elevated Blood Pressure Referrals: KATHIE GONZALEZ, [employer] [Primary Care Provider] - Follow up as needed
[2017-09-20] MEDS ORDERED: ONDANSETRON ODT 4 MG TAB (6 TAB/ER DISP) PO PRN (20:30)
[2017-09-20 20:56] VITALS: BP 151/88
== END 2017-09-20 21:16 | disposition home or self-care (01) ==
LOC: ER 15:24
DX: E11.9 Type 2 diabetes mellitus without complications (principal); E87.6 Hypokalemia; R51 Headache; R63.0 Anorexia; R10.9 Unspecified abdominal pain; G89.29 Other chronic pain; Z79.4 Long term (current) use of insulin; I10 Essential (primary) hypertension; Z90.49 Acquired absence of other specified parts of digestive tract
CPT/HCPCS: 99284; 96360; 36415; 85025; 80053; 81001; 82803; J7030

== ENCOUNTER 2017-10-18 09:36 | Emergency (ER) | payer MEDICAID ==
--- NOTE | 2017-10-18 10:29 | ER Document Report ---
ED Medical Screen (RME) - General Chief Complaint: Arm Problem Stated Complaint: ARM PAIN Time Seen by Provider: 10/18/17 10:15 Notes: 46-year-old female diabetic complaining of a two-week history of tingling in the first and second digits of the left hand and a few days of this tingling radiating proximally towards the elbow. She also reports pain in the left fifth finger radiating proximally along the ulnar aspect toward the elbow and up the posterior upper arm. What prompted her visit here today is she has noticed rectal bleeding when she has bowel movement stating it looks like she is on her period. She states her most recent A1c was 6, however her last 3 visits in the past 2 months had elevated sugars except for the ones she came in where she accidentally took too much of her diabetes medicine. I have greeted and performed a rapid initial assessment of this patient. A comprehensive ED assessment and evaluation of the patient, analysis of test results and completion of the medical decision making process will be conducted by additional ED providers. TRAVEL OUTSIDE OF THE [place] IN LAST 30 DAYS: No - Related Data Allergies/Adverse Reactions: oxycodone HCl [From Percocet] Allergy (Severe, Verified 10/18/17 09:41) resp azithromycin [From Zithromax] Allergy (Intermediate, Verified 10/18/17 09:41) resp codeine phosphate [From Codeine Phosphate Soluble] Allergy (Intermediate, Verified 10/18/17 09:41) resp hydrocodone Allergy (Mild, Verified 10/18/17 09:41) Anaphylaxis hydrocodone bitartrate [From Vicodin] Allergy (Verified 10/18/17 09:41) resp Past Medical History - Social History Chew tobacco use (# tins/day): No Frequency of alcohol use: None Drug Abuse: None Family history: Arthritis, CVA, DM, Hyperlipidemia, Hypertension, Malignancy, Thyroid Disfunction - Past Medical History Cardiac Medical History: Reports: Hx Hypertension Pulmonary Medical History: Reports: Hx Asthma Neurological Medical History: Reports: Hx Cerebrovascular Accident - 2005, Hx Migraine Endocrine Medical History: Reports: Hx Diabetes Mellitus Type 2 Renal/ Medical History: Denies: Hx Peritoneal Dialysis GI Medical History: Reports: Hx Gastroesophageal Reflux Disease Musculoskeltal Medical History: Reports Hx Arthritis - fingers, NECK, Reports Hx Musculoskeletal Trauma Psychiatric Medical History: Reports: Hx Anxiety, Hx Bipolar Disorder, Hx Depression, Hx Post Traumatic Stress Disorder Traumatic Medical History: Reports: Hx Fractures Past Surgical History: Reports: Hx Abdominal Surgery - EXPLORATORY, Hx Bowel Surgery, Hx Section - x4, Hx Cholecystectomy, Other - Multiple fatty tumors removed from different areas of her body all benign. Denies: Hx Pacemaker - Immunizations Immunizations up to date: Yes Hx Diphtheria, Pertussis, Tetanus Vaccination: Yes - UNSURE Physical Exam - Vital signs Vitals: Temp Pulse Resp BP Pulse Ox 98.7 F 83 16 159/88 H 98 10/18/17 09:49 10/18/17 09:49 10/18/17 09:49 10/18/17 09:49 10/18/17 09:49 Course - Vital Signs Vital signs: Temp Pulse Resp BP Pulse Ox 98.7 F 83 16 159/88 H 98 10/18/17 09:49 10/18/17 09:49 10/18/17 09:49 10/18/17 09:49 10/18/17 09:49 Doctor's Discharge - Discharge Referrals: KATHIE GONZALEZ, [employer] [Primary Care Provider] - Follow up as needed
[2017-10-18 10:47] LABS: ABSOLUTE BASOPHILS # (AUTO) 0.1 10^3/uL (0.0-0.2); ABSOLUTE EOSINOPHILS # (AUTO) 0.1 10^3/uL (0.0-0.6); ABSOLUTE LYMPHOCYTES (AUTO) 2.8 10^3/uL (0.5-4.7); ABSOLUTE MONOCYTES (AUTO) 0.5 10^3/uL (0.1-1.4); ABSOLUTE NEUT (AUTO) 2.8 10^3/uL (1.7-8.2); EOSINOPHILS % (AUTO) 1.8 % (0-6); HEMOGLOBIN 11.7 g/dL (12.0-15.5); LYMPHOCYTES % (AUTO) 44.6 % (13-45); MEAN CORPUSCULAR HEMOGLOBIN 29.4 pg (27.0-33.4); MEAN CORPUSCULAR HGB CONC 33.4 g/dL (32.0-36.0); MEAN CORPUSCULAR VOLUME 88 fl (80-97); PLATELET COUNT 260 10^3/uL (150-450); RED BLOOD COUNT 3.97 10^6/uL (3.72-5.28); RED CELL DISTRIBUTION WIDTH 14.4 % (11.5-14.0); SEGMENTED NEUTROPHILS % (AUTO) 44.6 % (42-78); TOTAL CELLS COUNTED % (AUTO) 100 %; WHITE BLOOD COUNT 6.3 10^3/uL (4.0-10.5)
[2017-10-18 10:57] LABS: APPEARANCE,URINE SLIGHTLY-CLOUDY; BILIRUBIN,URINE NEGATIVE (NEGATIVE); COLOR,URINE YELLOW; GLUCOSE, URINE >=500 mg/dL (NEGATIVE); KETONES,URINE 80 mg/dL (NEGATIVE); LEUKOCYTE ESTERASE,URINE NEGATIVE (NEGATIVE); NITRITE,URINE POSITIVE (NEGATIVE); PROTEIN,URINE 30 mg/dL (NEGATIVE); URINE SPECIFIC GRAVITY 1.023
[2017-10-18 11:07] LABS: ALANINE AMINOTRANSFERASE 31 U/L (9-52); ALKALINE PHOSPHATASE 85 U/L (38-126); ANION GAP 12 (5-19); ASPARTATE AMINO TRANSFERASE 32 U/L (14-36); BILIRUBIN,DIRECT 0.4 mg/dL (0.0-0.4); BILIRUBIN,TOTAL 0.6 mg/dL (0.2-1.3); BLOOD UREA NITROGEN 5 mg/dL (7-20); CALCIUM 9.1 mg/dL (8.4-10.2); CARBON DIOXIDE 24 mmol/L (22-30); CHLORIDE 105 mmol/L (98-107); GLUCOSE 246 mg/dL (75-110); POTASSIUM 3.4 mmol/L (3.6-5.0); SODIUM 141.4 mmol/L (137-145); TOTAL PROTEIN 7.8 g/dL (6.3-8.2)
--- NOTE | 2017-10-18 11:36 | ER Document Report ---
ED General - General Chief Complaint: Arm Problem Stated Complaint: ARM PAIN Time Seen by Provider: 10/18/17 10:15 Mode of Arrival: Ambulatory Information source: Patient Notes: 46-year-old female presents emergency department with complaints of a two-week history of paresthesias and pain in her left upper extremity. Patient states that she has been following up with her primary care physician for this. She was diagnosed with diabetic neuropathy. She was referred to a neurologist. Patient has not followed up with a neurologist yet. Patient states that she is having a tingling sensation in the first and second digits of the left hand and this radiates towards the elbow. She states that she is also having pain in the left fifth finger towards the elbow. She denies any alleviating or exacerbating factors. She denies any trauma or injury. Also having bright red blood from rectum. Denies abdominal pain,, nausea, vomiting, diarrhea, constipation. TRAVEL OUTSIDE OF THE [place] IN LAST 30 DAYS: No - HPI Onset: Other - 2 weeks Quality of pain: Sharp, Stabbing, Throbbing Pain Level: 3 Associated symptoms: None Exacerbated by: Denies Relieved by: Denies Similar symptoms previously: Yes Recently seen / treated by doctor: Yes - Related Data Allergies/Adverse Reactions: oxycodone HCl [From Percocet] Allergy (Severe, Verified 10/18/17 09:41) resp azithromycin [From Zithromax] Allergy (Intermediate, Verified 10/18/17 09:41) resp codeine phosphate [From Codeine Phosphate Soluble] Allergy (Intermediate, Verified 10/18/17 09:41) resp hydrocodone Allergy (Mild, Verified 10/18/17 09:41) Anaphylaxis hydrocodone bitartrate [From Vicodin] Allergy (Verified 10/18/17 09:41) resp Past Medical History - Social History Smoking Status: Never Smoker Chew tobacco use (# tins/day): No Frequency of alcohol use: None Drug Abuse: None Family History: Arthritis, CVA, DM, Hyperlipidemia, Hypertension, Malignancy, Thyroid Disfunction Patient has suicidal ideation: No Patient has homicidal ideation: No - Past Medical History Cardiac Medical History: Reports: Hx Hypertension Pulmonary Medical History: Reports: Hx Asthma Neurological Medical History: Reports: Hx Cerebrovascular Accident - 2005, Hx Migraine Endocrine Medical History: Reports: Hx Diabetes Mellitus Type 2 Renal/ Medical History: Denies: Hx Peritoneal Dialysis GI Medical History: Reports: Hx Gastroesophageal Reflux Disease Musculoskeltal Medical History: Reports Hx Arthritis - fingers, NECK, Reports Hx Musculoskeletal Trauma Psychiatric Medical History: Reports: Hx Anxiety, Hx Bipolar Disorder, Hx Depression, Hx Post Traumatic Stress Disorder Traumatic Medical History: Reports: Hx Fractures Past Surgical History: Reports: Hx Abdominal Surgery - EXPLORATORY, Hx Bowel Surgery, Hx Section - x4, Hx Cholecystectomy, Other - Multiple fatty tumors removed from different areas of her body all benign. Denies: Hx Pacemaker - Immunizations Immunizations up to date: Yes Hx Diphtheria, Pertussis, Tetanus Vaccination: Yes - UNSURE Review of Systems - Review of Systems Constitutional: No symptoms reported EENT: No symptoms reported Cardiovascular: No symptoms reported Respiratory: No symptoms reported Gastrointestinal: No symptoms reported Genitourinary: No symptoms reported Female Genitourinary: No symptoms reported Musculoskeletal: Muscle pain Skin: No symptoms reported Hematologic/Lymphatic: No symptoms reported Neurological/Psychological: Numbness, Tingling -: Yes All other systems reviewed and negative Physical Exam - Vital signs Vitals: Temp Pulse Resp BP Pulse Ox 98.7 F 83 16 159/88 H 98 10/18/17 09:49 10/18/17 09:49 10/18/17 09:49 10/18/17 09:49 10/18/17 09:49 Interpretation: Normal - Notes Notes: PHYSICAL EXAMINATION: GENERAL: Well-appearing, well-nourished and in no acute distress. HEAD: Atraumatic, normocephalic. EYES: Pupils equal round and reactive to light, extraocular movements intact, conjunctiva are normal. ENT: Nares patent, oropharynx clear without exudates. Moist mucous membranes. NECK: Normal range of motion, supple without lymphadenopathy LUNGS: Breath sounds clear to auscultation bilaterally and equal. No wheezes rales or rhonchi. HEART: Regular rate and rhythm without murmurs ABDOMEN: Soft, nontender, nondistended abdomen. No guarding, no rebound. No masses appreciated. Rectal exam done. External hemorrhoid appreciated. No bleeding seen. Female : deferred Musculoskeletal: Normal range of motion, no pitting or edema. No cyanosis. NEUROLOGICAL: Cranial nerves grossly intact. Normal speech, normal gait. Motor exam normal. Normal sensory exam in the right upper extremity, right lower extremity, left lower extremity. Left upper extremity patient complains of decreased sensation to the first and second digits. Patient complains of pain to the fifth digit. PSYCH: Normal mood, normal affect. SKIN: Warm, Dry, normal turgor, no rashes or lesions noted. Course - Re-evaluation Re-evalutation: 10/18/17 12:33 Patient says she's had rectal bleeding. Rectal exam done. Hemorrhoid appreciated. Heme occult negative stool. Hemoglobin stable. LUE median nerve distribution. Patient having pain in the ulnar nerve distribution. Patient denies any neck pain. No trauma or injury. Patient has appropriate follow-up with neurology regarding her paresthesias and pain. I will discharge the patient home. Patient instructed to follow-up with her primary care physician this week, to take [id number] medications as needed for symptom relief, and to return to emergency department for worsening symptoms. - Vital Signs Vital signs: Temp Pulse Resp BP Pulse Ox 98.7 F 83 16 159/88 H 98 10/18/17 09:49 10/18/17 09:49 10/18/17 09:49 10/18/17 09:49 10/18/17 09:49 - Laboratory Result Diagrams: 10/18/17 10:30 10/18/17 10:30 Laboratory results interpreted by me: 10/18/17 10/18/17 10/18/17 10:30 10:30 10:30 Hgb 11.7 L Hct 35.0 L RDW 14.4 H Potassium 3.4 L BUN 5 L Glucose 246 H Hemoglobin A1c % 9.2 H Urine Protein Urine Glucose (UA) Urine Ketones Urine Nitrite Urine Urobilinogen 10/18/17 10:30 Hgb Hct RDW Potassium BUN Glucose Hemoglobin A1c % Urine Protein 30 H Urine Glucose (UA) >=500 H Urine Ketones 80 H Urine Nitrite POSITIVE H Urine Urobilinogen 2.0 H Discharge - Discharge Clinical Impression: Paresthesia and pain of left extremity Hemorrhoid Qualifiers: Hemorrhoid type: unspecified Qualified Code(s): K64.9 - Unspecified hemorrhoids Condition: Stable Disposition: HOME, SELF-CARE Instructions: Hemorrhoids ([facility]), Numbness or Paresthesia ([facility]) Referrals: KATHIE GONZALEZ NP [Primary Care Provider] - Follow up as needed
[2017-10-18] MEDS ORDERED: KETOROLAC TROMETHAMINE 60 MG/2 ML SDV IM ONE (12:42)
[2017-10-18 12:54] VITALS: BP 169/89
== END 2017-10-18 12:54 | disposition home or self-care (01) ==
LOC: ER 09:36
DX: K64.9 Unspecified hemorrhoids (principal); R20.0 Anesthesia of skin; M79.602 Pain in left arm; I10 Essential (primary) hypertension; J45.909 Unspecified asthma, uncomplicated; E11.9 Type 2 diabetes mellitus without complications
CPT/HCPCS: 99283; 96372; 36415; 85025; 82272; 80053; 81001; 83036; J1885

== ENCOUNTER 2017-12-09 21:44 | Emergency (ER) | payer MEDICAID ==
[2017-12-09] MEDS ORDERED: NORMAL SALINE 1000 ML 1,000 ML IV ONE (22:08)
[2017-12-09] MEDS ORDERED: ONDANSETRON HCL INJ/PF 4 MG/2 ML SDV IV ONE (22:10)
--- NOTE | 2017-12-09 22:10 | ER Document Report ---
ED Medical Screen (RME) - General Chief Complaint: High Blood Sugar Stated Complaint: BLOOD SUGAR PROBLEM Time Seen by Provider: 12/09/17 22:08 Mode of Arrival: Wheelchair Information source: Patient TRAVEL OUTSIDE OF THE [place] IN LAST 30 DAYS: No - HPI Patient complains to provider of: Elevated blood sugars, chills, fever, body aches Notes: 12/09/17 22:09 Patient is a 47-year-old female with a history of diabetes, presenting to the emergency room today complaining of blood sugars in the 3 or 400+ range that have been going on since September, she attempted to call her malt loader but has not heard back from her regarding how to manage this, she is also over the last few days had subjective fever with chills, generalized weakness, increased urinary frequency, increased thirst, and also is concerned about "lesions on my hip", states that she was told by her pain management doctor that she has these lesions and that someone would be contacting her to perform a biopsy, however this was over a month ago and she is not heard from anyone yet - Related Data Allergies/Adverse Reactions: oxycodone HCl [From Percocet] Allergy (Severe, Verified 10/18/17 09:41) resp azithromycin [From Zithromax] Allergy (Intermediate, Verified 10/18/17 09:41) resp codeine phosphate [From Codeine Phosphate Soluble] Allergy (Intermediate, Verified 10/18/17 09:41) resp hydrocodone Allergy (Mild, Verified 10/18/17 09:41) Anaphylaxis hydrocodone bitartrate [From Vicodin] Allergy (Verified 10/18/17 09:41) resp Past Medical History - Social History Family history: Arthritis, CVA, DM, Hyperlipidemia, Hypertension, Malignancy, Thyroid Disfunction - Past Medical History Cardiac Medical History: Reports: Hx Hypertension Pulmonary Medical History: Reports: Hx Asthma Neurological Medical History: Reports: Hx Cerebrovascular Accident - 2005, Hx Migraine Endocrine Medical History: Reports: Hx Diabetes Mellitus Type 2 Renal/ Medical History: Denies: Hx Peritoneal Dialysis GI Medical History: Reports: Hx Gastroesophageal Reflux Disease Musculoskeltal Medical History: Reports Hx Arthritis - fingers, NECK, Reports Hx Musculoskeletal Trauma Psychiatric Medical History: Reports: Hx Anxiety, Hx Bipolar Disorder, Hx Depression, Hx Post Traumatic Stress Disorder Traumatic Medical History: Reports: Hx Fractures Past Surgical History: Reports: Hx Abdominal Surgery - EXPLORATORY, Hx Bowel Surgery, Hx Section - x4, Hx Cholecystectomy, Other - Multiple fatty tumors removed from different areas of her body all benign. Denies: Hx Pacemaker - Immunizations Immunizations up to date: Yes Hx Diphtheria, Pertussis, Tetanus Vaccination: Yes - UNSURE Physical Exam - Vital signs Vitals: Temp Pulse Resp BP Pulse Ox 99.0 F 114 H 117 H 141/89 H 97 12/09/17 21:54 12/09/17 21:54 12/09/17 21:54 12/09/17 21:54 12/09/17 21:54 Course - Vital Signs Vital signs: Temp Pulse Resp BP Pulse Ox 99.0 F 114 H 117 H 141/89 H 97 12/09/17 21:54 12/09/17 21:54 12/09/17 21:54 12/09/17 21:54 12/09/17 21:54 Doctor's Discharge - Discharge Referrals: KATHIE GONZALEZ, BEN[employer] LAT[employer] OPERATOR [Primary Care Provider] - Follow up as needed
[2017-12-09 22:41] LABS: VENOUS BLOOD BASE EXCESS 0.9 mmol/L; VENOUS BLOOD HCO3 25.7 mmol/L (20-32); VENOUS BLOOD PCO2 41.5 mmHg (35-63); VENOUS BLOOD PH 7.41 (7.30-7.42)
[2017-12-09 22:57] LABS: ABSOLUTE BASOPHILS # (AUTO) 0.1 10^3/uL (0.0-0.2); ABSOLUTE LYMPHOCYTES (AUTO) 2.8 10^3/uL (0.5-4.7); ABSOLUTE MONOCYTES (AUTO) 0.5 10^3/uL (0.1-1.4); ABSOLUTE NEUT (AUTO) 3.3 10^3/uL (1.7-8.2); BASOPHILS % (AUTO) 0.8 % (0-2); EOSINOPHILS % (AUTO) 0.7 % (0-6); HEMATOCRIT 35.5 % (36.0-47.0); HEMOGLOBIN 11.7 g/dL (12.0-15.5); LYMPHOCYTES % (AUTO) 41.6 % (13-45); MEAN CORPUSCULAR HEMOGLOBIN 28.6 pg (27.0-33.4); MEAN CORPUSCULAR HGB CONC 32.8 g/dL (32.0-36.0); MEAN CORPUSCULAR VOLUME 87 fl (80-97); MONOCYTES % (AUTO) 7.5 % (3-13); PLATELET COUNT 237 10^3/uL (150-450); RED BLOOD COUNT 4.07 10^6/uL (3.72-5.28); RED CELL DISTRIBUTION WIDTH 14.4 % (11.5-14.0); SEGMENTED NEUTROPHILS % (AUTO) 49.4 % (42-78); TOTAL CELLS COUNTED % (AUTO) 100 %; WHITE BLOOD COUNT 6.7 10^3/uL (4.0-10.5)
[2017-12-09] MEDS ORDERED: INSULIN REG, HUMAN 100 UNIT/ML 3 ML VIAL (PYX) SUBCUT ONE (23:01)
--- NOTE | 2017-12-09 23:02 | ER Document Report ---
ED General - General Chief Complaint: High Blood Sugar Stated Complaint: BLOOD SUGAR PROBLEM Time Seen by Provider: 12/09/17 22:08 Mode of Arrival: Wheelchair Notes: Patient is a 47-year-old female with a past medical history of insulin- dependent type 2 diabetes, morbid obesity, chronic right hip pain, who presents with concerns of polyuria, polydipsia, excessively high blood sugars despite taking her insulin and oral medications as directed. Patient states that her symptoms have been ongoing since September, are not new or different tonight but she is worried that her blood sugars may be critically high. She has not followed with her application designer regarding these issues but has seen her general doctor. She denies any vomiting, diarrhea, abdominal pain, chest pain, shortness of breath, fever or constitutional symptoms. Nothing improves or worsens her symptoms. She denies a history of similar symptoms prior to the past several months. TRAVEL OUTSIDE OF THE [place] IN LAST 30 DAYS: No - Related Data Allergies/Adverse Reactions: oxycodone HCl [From Percocet] Allergy (Severe, Verified 10/18/17 09:41) resp azithromycin [From Zithromax] Allergy (Intermediate, Verified 10/18/17 09:41) resp codeine phosphate [From Codeine Phosphate Soluble] Allergy (Intermediate, Verified 10/18/17 09:41) resp hydrocodone Allergy (Mild, Verified 10/18/17 09:41) Anaphylaxis hydrocodone bitartrate [From Vicodin] Allergy (Verified 10/18/17 09:41) resp Past Medical History - General Information source: Patient - Social History Smoking Status: Never Smoker Frequency of alcohol use: None Drug Abuse: None Lives with: Spouse/Significant other Family History: Arthritis, CVA, DM, Hyperlipidemia, Hypertension, Malignancy, Thyroid Disfunction - Past Medical History Cardiac Medical History: Reports: Hx Hypertension Pulmonary Medical History: Reports: Hx Asthma Neurological Medical History: Reports: Hx Cerebrovascular Accident - 2005, Hx Migraine Endocrine Medical History: Reports: Hx Diabetes Mellitus Type 2 Renal/ Medical History: Denies: Hx Peritoneal Dialysis GI Medical History: Reports: Hx Gastroesophageal Reflux Disease Musculoskeletal Medical History: Reports Hx Arthritis - fingers, NECK, Reports Hx Musculoskeletal Trauma Psychiatric Medical History: Reports: Hx Anxiety, Hx Bipolar Disorder, Hx Depression, Hx Post Traumatic Stress Disorder Traumatic Medical History: Reports: Hx Fractures Past Surgical History: Reports: Hx Abdominal Surgery - EXPLORATORY, Hx Bowel Surgery, Hx Section - x4, Hx Cholecystectomy, Other - Multiple fatty tumors removed from different areas of her body all benign. Denies: Hx Pacemaker - Immunizations Immunizations up to date: Yes Hx Diphtheria, Pertussis, Tetanus Vaccination: Yes - UNSURE Review of Systems - Review of Systems Notes: Constitutional: Negative for fever. Positive for polyuria and polydipsia HENT: Negative for sore throat. Eyes: Negative for visual changes. Cardiovascular: Negative for chest pain. Respiratory: Negative for shortness of breath. Gastrointestinal: Negative for abdominal pain, vomiting or diarrhea. Genitourinary: Negative for dysuria. Musculoskeletal: Negative for back pain. Skin: Negative for rash. Neurological: Negative for headaches, weakness or numbness. 10 point ROS negative except as marked above and in HPI. Physical Exam - Vital signs Vitals: Temp Pulse Resp BP Pulse Ox 99.0 F 114 H 117 H 141/89 H 97 12/09/17 21:54 12/09/17 21:54 12/09/17 21:54 12/09/17 21:54 12/09/17 21:54 Interpretation: Tachycardic Notes: PHYSICAL EXAMINATION: GENERAL: Well-appearing, well-nourished and in no acute distress. HEAD: Atraumatic, normocephalic. EYES: Pupils equal round and reactive to light, extraocular movements intact, sclera anicteric, conjunctiva are normal. ENT: nares patent, oropharynx clear without exudates. Moderately dry mucous membranes. NECK: Normal range of motion, supple without lymphadenopathy LUNGS: Breath sounds clear to auscultation bilaterally and equal. No wheezes rales or rhonchi. HEART: Regular tachycardia without murmurs ABDOMEN: Soft, nontender, normoactive bowel sounds. No guarding, no rebound. No masses appreciated. EXTREMITIES: Normal range of motion, no pitting or edema. No cyanosis. NEUROLOGICAL: No focal neurological deficits. Moves all extremities spontaneously and on command. PSYCH: Moderately anxious SKIN: Warm, Dry, normal turgor, no rashes or lesions noted. Course - Re-evaluation Re-evalutation: 12/09/17 23:00 Presentation of hyperglycemia with associated polyuria, polydipsia and fatigue. Nothing is new or different today relative to the past several months. There is no evidence of HHS or diabetic ketoacidosis on laboratories or based on clinical history. Patient's initial vitals showed mild tachycardia but were otherwise unremarkable. They deny any acute focal complaints. Treatment with IV fluids given here in the emergency department with appropriate response of the blood sugar. Patient does have primary care follow-up although has had inconsistent follow-up with endocrinology. I strongly emphasized the need to follow-up with endocrinology as patient is already on a complex diabetic regiment and I am not comfortable adjusting her medications. Patient was instructed to continue taking their medications as previously prescribed with her application designer. Her laboratories do demonstrate findings consistent with a urinary tract infection. Patient has been started on cephalexin. Urine cultures have been sent. At this time will discharge with return precautions and follow-up recommendations. Verbal discharge instructions given a the bedside and opportunity for questions given. Medication warnings reviewed. Patient is in agreement with this plan and has verbalized understanding of return precautions and the need for primary care follow-up in the next 24-72 hours. - Vital Signs Vital signs: Temp Pulse Resp BP Pulse Ox 99.0 F 114 H 117 H 141/89 H 97 12/09/17 21:54 12/09/17 21:54 12/09/17 21:54 12/09/17 21:54 12/09/17 21:54 - Laboratory Result Diagrams: 12/09/17 22:20 12/09/17 23:52 Laboratory results interpreted by me: 12/09/17 12/09/17 12/09/17 22:07 22:20 23:00 Hgb 11.7 L Hct 35.5 L RDW 14.4 H BUN Glucose POC Glucose 253 H 221 H Urine Glucose (UA) Urine Blood Urine Nitrite Ur Leukocyte Esterase 12/09/17 12/10/17 23:52 01:05 Hgb Hct RDW BUN 6 L Glucose 217 H POC Glucose Urine Glucose (UA) 50 H Urine Blood SMALL H Urine Nitrite POSITIVE H Ur Leukocyte Esterase SMALL H Discharge - Discharge Clinical Impression: Dehydration, Hyperglycemia Diabetes type 2, uncontrolled Qualifiers: Glycemic state: with hyperglycemia Qualified Code(s): E11.65 - Type 2 diabetes mellitus with hyperglycemia Urinary tract infection Qualifiers: Urinary tract infection type: acute cystitis Hematuria presence: without hematuria Qualified Code(s): N30.00 - Acute cystitis without hematuria Condition: Stable Disposition: HOME, SELF-CARE Additional Instructions: Your urine shows findings consistent with a urinary tract infection. Please take all the antibiotics as directed even if your symptoms have improved. Please follow-up with your primary care physician as needed. Return to emergency room if you develop fever >101F, persistent vomiting, become lethargic , have severe pain in your sides, or any other symptoms that are concerning to you. You need to followup urgently with your primary care doctor regarding her uncontrolled blood sugars. You did not have any evidence of a dangerous condition associated with these blood sugars at this time. However, it is very important that you get your blood sugars under control. Please take all of your medications exactly as directed. You should avoid foods that are high in carbohydrates and sugary foods. Losing weight will also help to better control your blood sugars. Please return to emergency department immediately if you develop weakness, persistent vomiting, confusion, or any other symptoms that are concerning to you. Prescriptions: Cephalexin Monohydrate [Keflex 500 mg Capsule] 500 mg PO Q6H 5 Days capsule Referrals: KATHIE GONZALEZ NP [Primary Care Provider] - Follow up tomorrow
[2017-12-10 00:16] LABS: ALANINE AMINOTRANSFERASE 23 U/L (9-52); ALBUMIN 3.7 g/dL (3.5-5.0); ALKALINE PHOSPHATASE 90 U/L (38-126); ANION GAP 13 (5-19); ASPARTATE AMINO TRANSFERASE 22 U/L (14-36); BILIRUBIN,DIRECT 0.3 mg/dL (0.0-0.4); BILIRUBIN,TOTAL 0.7 mg/dL (0.2-1.3); BLOOD UREA NITROGEN 6 mg/dL (7-20); CALCIUM 8.8 mg/dL (8.4-10.2); CARBON DIOXIDE 23 mmol/L (22-30); CHLORIDE 104 mmol/L (98-107); GLUCOSE 217 mg/dL (75-110); POTASSIUM 3.7 mmol/L (3.6-5.0); SODIUM 139.6 mmol/L (137-145); TOTAL PROTEIN 7.8 g/dL (6.3-8.2)
[2017-12-10] MEDS ORDERED: NORMAL SALINE 1000 ML 1,000 ML IV ONE (01:15)
[2017-12-10] MEDS ORDERED: ACETAMINOPHEN 325 MG TABLET PO ONE (01:16)
[2017-12-10 01:46] LABS: APPEARANCE,URINE CLEAR; BILIRUBIN,URINE NEGATIVE (NEGATIVE); COLOR,URINE YELLOW; GLUCOSE, URINE 50 mg/dL (NEGATIVE); KETONES,URINE NEGATIVE (NEGATIVE); LEUKOCYTE ESTERASE,URINE SMALL (NEGATIVE); NITRITE,URINE POSITIVE (NEGATIVE); PROTEIN,URINE NEGATIVE (NEGATIVE); URINE SPECIFIC GRAVITY 1.009; UROBILINOGEN,URINE NEGATIVE mg/dL (<2.0)
[2017-12-10] MEDS ORDERED: CEPHALEXIN 500 MG CAPSULE PO ONE (02:17)
[2017-12-10 03:03] VITALS: BP 135/75
== END 2017-12-10 03:03 | disposition home or self-care (01) ==
LOC: ER 21:44
DX: E11.65 Type 2 diabetes mellitus with hyperglycemia (principal); Z79.4 Long term (current) use of insulin; N30.00 Acute cystitis without hematuria; E86.0 Dehydration; J45.909 Unspecified asthma, uncomplicated; R00.0 Tachycardia, unspecified; E66.01 Morbid (severe) obesity due to excess calories; Z68.38 Body mass index [BMI] 38.0-38.9, adult; I10 Essential (primary) hypertension; Z79.899 Other long term (current) drug therapy; Z88.5 Allergy status to narcotic agent; Z87.892 Personal history of anaphylaxis; Z88.1 Allergy status to other antibiotic agents
CPT/HCPCS: 99283; 96361; 96374; 36415; 87086; 82962; 85025; 81025; 87088; 80053; 81001; 87186; 82803; J3490; J1815; J2405; J7030 ×2

== ENCOUNTER → 2018-05-07 | Outpatient (CLI) | payer MEDICAID ==
--- NOTE | 2018-05-08 09:20 | RADIOLOGY REPORT (SQ) ---
EXAM DESCRIPTION: CT PELVIS COMBO COMPLETED DATE/TIME: 05/07/2018 3:58 pm REASON FOR STUDY: R93.5 ABN FINDINGS ON DX IMAGING OF ABD REGIONS, INC RETROPERITON R93.5 ABN FINDI NGS ON DX IMAGING OF ABD [employer], INC RETROPE COMPARISON: Whole-body bone scan 07/30/2017 Bilateral hip and pelvis films 07/30/2017 AP pelvis 10/30/2011, lumbar spine films 10/30/2011 CT abdomen pelvis 03/24/2016 TECHNIQUE: CT scan of the pelvis performed without and with intravenous or oral contrast. Images re viewed with soft tissue and bone windows. Reconstructed coronal and sagittal MPR images reviewed. A ll images stored on PACS. Patient was injected with 100 mL of IV Omnipaque 350. Creatinine 0.7. All CT scanners at this facility use dose modulation, iterative reconstruction, and/or weight based d osing when appropriate to reduce radiation dose to as low as reasonably achievable (ALARA). [facility]: Dose Right [facility]: CareDose [facility]: Dose Right [facility]: Teradose 4D [facility]: Smart Workiva RADIATION DOSE: CT Rad equipment meets quality standard of care and radiation dose reduction techniq ues were employed. CTDIvol: 10.3 - 11.6 mGy. DLP: 1033 mGy-cm. mGy. LIMITATIONS: None. FINDINGS: PELVIC BONES: In the left innominate bone, abutting the SI joint, a well-circumscribed tyler ent lesion with surrounding dense bony sclerosis is present. Lesion abuts but does not erode into th e left SI joint. This measures about 5.4 cm AP x 2.7 cm transverse on axial images. Centrally, ther e is no significant contrast enhancement within the lucent part of the lesion. Overall this is uncha nged compared to plain films dating back to 2011, and was not visualized and bone scan 07/30/2017. Th is probably represents a benign bony finding suggests an ossifying fibroma or monostotic fibrous dysp lasia. Remainder of the bony pelvis is otherwise unremarkable. VISUALIZED SPINE: No acute findings. HIPS: No acute fracture or dislocation. No worrisome bone lesions. PELVIC SOFT TISSUES: No significant findings. EXTRAPELVIC SOFT TISSUES: No significant findings. OTHER: No other significant finding. IMPRESSION: Left innominate bone lesion is stable compared to studies dating back to 2011, without s ignificant activity at bone scan. 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 TECHNICAL DOCUMENTATION: JOB ID: [id number] Quality ID # [id number]: Final reports with documentation of one or more dose reduction techniques (e.g., Au tomated exposure control, adjustment of the mA and/or kV according to patient size, use of iterative reconstruction technique) 2010 [employer]- All Rights Reserved Reading location - IP/workstation name: [facility]
== END ==
LOC: RAD 16:07
PROVIDERS: ATTEND Internal Medicine Hematology & Oncology
DX: R93.5 Abnormal findings on diagnostic imaging of other abdominal regions, including retroperitoneum (principal)
CPT/HCPCS: 72194; 82565

== ENCOUNTER 2018-10-27 23:15 | Emergency (ER) | payer MEDICAID ==
[2018-10-28] MEDS ORDERED: NORMAL SALINE 1000 ML 1,000 ML IV ONE (02:47)
--- NOTE | 2018-10-28 02:47 | ER Document Report ---
ED General - General Chief Complaint: Probable Seizure Stated Complaint: POSSIBLE SEIZURE Time Seen by Provider: 10/28/18 02:31 Primary Care Provider: SARAH OSBORNE MD [Primary Care Provider] - Follow up as needed Notes: 47-year-old female patient emergency department for altered mental status. Mother states that she was at home and a friend or some other relative thought that she was excessively somnolent and may have fallen and had a seizure. Patient does not remember. Does not think that she hit her head. Denies any other major symptoms. Patient is excessively sleepy but able to be woken up and answers questions. Has several medications which can make you sleepy. Medications at bedside. And adamantly denies that she has anything to hurt herself. TRAVEL OUTSIDE OF THE [place] IN LAST 30 DAYS: No - HPI Onset: Just prior to arrival - Related Data Allergies/Adverse Reactions: oxycodone HCl [From Percocet] Allergy (Severe, Verified 10/18/17 09:41) resp azithromycin [From Zithromax] Allergy (Intermediate, Verified 10/18/17 09:41) resp codeine phosphate [From Codeine Phosphate Soluble] Allergy (Intermediate, Verified 10/18/17 09:41) resp hydrocodone Allergy (Mild, Verified 10/18/17 09:41) Anaphylaxis hydrocodone bitartrate [From Vicodin] Allergy (Verified 10/18/17 09:41) resp Past Medical History - General Information source: Patient, Parent, [facility] Records - Social History Smoking Status: Never Smoker Frequency of alcohol use: None Drug Abuse: None Lives with: Family Family History: Arthritis, CVA, DM, Hyperlipidemia, Hypertension, Malignancy, Thyroid Disfunction Patient has suicidal ideation: No Patient has homicidal ideation: No - Past Medical History Cardiac Medical History: Reports: Hx Hypertension Pulmonary Medical History: Reports: Hx Asthma Neurological Medical History: Reports: Hx Cerebrovascular Accident - 2004, Hx Migraine Endocrine Medical History: Reports: Hx Diabetes Mellitus Type 2 Renal/ Medical History: Denies: Hx Peritoneal Dialysis GI Medical History: Reports: Hx Gastroesophageal Reflux Disease Musculoskeletal Medical History: Reports Hx Arthritis - fingers, NECK, Reports Hx Musculoskeletal Trauma Psychiatric Medical History: Reports: Hx Anxiety, Hx Bipolar Disorder, Hx Depre ssion, Hx Post Traumatic Stress Disorder Traumatic Medical History: Reports: Hx Fractures Past Surgical History: Reports: Hx Abdominal Surgery - EXPLORATORY, Hx Bowel Surgery, Hx Section - x4, Hx Cholecystectomy, Other - Multiple fatty tumors removed from different areas of her body all benign. Denies: Hx Pacemaker - Immunizations Immunizations up to date: Yes Hx Diphtheria, Pertussis, Tetanus Vaccination: Yes - UNSURE Review of Systems - Review of Systems Notes: Constitutional: denies: Chills, Diaphoresis, Fever, Malaise, Weakness and confusion. Altered mental status EENT: denies: Eye discharge, Blurred vision, Tearing, Double vision, Nose congestion, Nose discharge, Throat swelling, Mouth pain Cardiovascular: denies: Palpitations, Heart racing, Orthopnea, Dyspnea, Chest pain Respiratory: denies: Cough, Hurts to breathe, Wheezing, Shortness of breath Gastrointestinal: denies: Abdominal pain, Diarrhea, Nausea, Vomiting, Black stools, bright red blood in stool Genitourinary: denies: Burning, Dysuria, Discharge, Frequency, Flank pain, Hematuria Musculoskeletal: denies: Joint pain, Joint swelling, Muscle pain, Muscle stiffness, back pain Hematologic/Lymphatic: denies: Anemia, Easy bleeding, Easy bruising, Blood clots Neurological/Psychological: denies: Dementia, Depression, Loss of consciousness. +Confusion, Skin: No lesions, no masses, no skin breakdown, no abscesses Physical Exam - Vital signs Vitals: Temp Pulse Resp BP Pulse Ox 98.5 F 103 H 18 154/89 H 96 10/27/18 23:26 10/27/18 23:26 10/27/18 23:26 10/27/18 23:26 10/27/18 23:26 Interpretation: Normal - Notes Notes: She is sleepy but arousable. Does not have pinpoint pupils. Pupils seem more dilated - General General appearance: Appears well, Alert - HEENT Head: Normocephalic, Atraumatic Eyes: Normal Pupils: PERRL - Respiratory Respiratory status: No respiratory distress Chest status: Nontender Breath sounds: Normal Chest palpation: Normal - Cardiovascular Rhythm: Regular Heart sounds: Normal auscultation Murmur: No - Abdominal Inspection: Normal Distension: No distension Bowel sounds: Normal Tenderness: Nontender Organomegaly: No organomegaly - Back Back: Normal, Nontender - Extremities General upper extremity: Normal inspection, Nontender, Normal color, Normal ROM, Normal temperature General lower extremity: Normal inspection, Tender - Tenderness to palpation of the left shoulder., Normal color, Normal ROM, Normal temperature, Normal weight bearing. No: Ketty's sign - Neurological Neuro grossly intact: Yes Cognition: Normal Orientation: AAOx4 [place] Coma Scale Eye Opening: Spontaneous Sofi Coma Scale Verbal: Oriented [place] Coma Scale Motor: Obeys Commands Sofi Coma Scale Total: 15 Speech: Normal Motor strength normal: LUE, RUE, LLE, RLE Sensory: Normal - Psychological Associated symptoms: Normal affect, Normal mood - Skin Skin Temperature: Warm Skin Moisture: Dry Skin Color: Normal Course - Re-evaluation Re-evalutation: 10/28/18 04:56 Laboratory 10/28/18 10/28/18 10/28/18 03:27 03:27 03:27 WBC 7.6 RBC 3.76 Hgb 10.5 L Hct 32.0 L MCV 85 MCH 27.9 MCHC 32.8 RDW 13.6 Plt Count 228 Seg Neutrophils % 47.2 Lymphocytes % 44.2 Monocytes % 5.5 Eosinophils % 2.8 Basophils % 0.3 Absolute Neutrophils 3.6 Absolute Lymphocytes 3.3 Absolute Monocytes 0.4 Absolute Eosinophils 0.2 Absolute Basophils 0.0 Sodium 138.3 Potassium 4.1 Chloride 103 Carbon Dioxide 28 Anion Gap 7 BUN 13 Creatinine 0.77 Est GFR ( Amer) > 60 Est GFR (Non-Af Amer) > 60 Glucose 203 H Calcium 9.1 Total Bilirubin 0.2 Direct Bilirubin 0.2 Neonat Total Bilirubin Not Reportable Neonat Direct Bilirubin Not Reportable Neonat Indirect Bili Not Reportable AST 16 ALT 20 Alkaline Phosphatase 124 Creatine Kinase 131 Troponin I < 0.012 Total Protein 7.3 Albumin 3.3 L Urine Color Urine Appearance Urine pH Ur Specific [place] Urine Protein Urine Glucose (UA) Urine Ketones Urine Blood Urine Nitrite Urine Bilirubin Urine Urobilinogen Ur Leukocyte Esterase Urine WBC (Auto) Urine RBC (Auto) U Hyaline Cast (Auto) Urine Bacteria (Auto) Squamous Epi Cells Auto Urine Mucus (Auto) Urine Ascorbic Acid Urine Opiates Screen Urine Methadone Screen Acetaminophen < 10 L Ur Barbiturates Screen Ur Phencyclidine Scrn Ur Amphetamines Screen U Benzodiazepines Scrn Urine Cocaine Screen U Marijuana (THC) Screen Serum Alcohol < 10 10/28/18 10/28/18 03:27 03:27 WBC RBC Hgb Hct MCV MCH MCHC RDW Plt Count Seg Neutrophils % Lymphocytes % Monocytes % Eosinophils % Basophils % Absolute Neutrophils Absolute Lymphocytes Absolute Monocytes Absolute Eosinophils Absolute Basophils Sodium Potassium Chloride Carbon Dioxide Anion Gap BUN Creatinine Est GFR ( Amer) Est GFR (Non-Af Amer) Glucose Calcium Total Bilirubin Direct Bilirubin Neonat Total Bilirubin Neonat Direct Bilirubin Neonat Indirect Bili AST ALT Alkaline Phosphatase Creatine Kinase Troponin I Total Protein Albumin Urine Color YELLOW Urine Appearance CLOUDY Urine pH 6.0 Ur Specific [place] 1.019 Urine Protein NEGATIVE Urine Glucose (UA) 150 H Urine Ketones NEGATIVE Urine Blood NEGATIVE Urine Nitrite NEGATIVE Urine Bilirubin NEGATIVE Urine Urobilinogen NEGATIVE Ur Leukocyte Esterase TRACE H Urine WBC (Auto) 11 Urine RBC (Auto) 1 U Hyaline Cast (Auto) 4 Urine Bacteria (Auto) 3+ Squamous Epi Cells Auto 9 Urine Mucus (Auto) OCC Urine Ascorbic Acid NEGATIVE Urine Opiates Screen UNCONFIRMED POSITIVE Urine Methadone Screen NEGATIVE Acetaminophen Ur Barbiturates Screen NEGATIVE Ur Phencyclidine Scrn NEGATIVE Ur Amphetamines Screen NEGATIVE U Benzodiazepines Scrn NEGATIVE Urine Cocaine Screen NEGATIVE U Marijuana (THC) Screen NEGATIVE Serum Alcohol Shoulder X-Ray 10/28/18 02:47 IMPRESSION: No acute osseous findings. Head CT 10/28/18 02:52 IMPRESSION: No acute intracranial findings. 10/28/18 04:57 Has been observed here for several hours. Her labs are fairly unremarkable. She is excessively somnolent but her head CT is negative. She is on Cymbalta, trazodone as well as Ambien. More than likely she has had some other medications but right now she is denying that. Will attempt to ambulate patient if she is able to go home with some bone safely we will discharge her if not we will continue to watch. - Vital Signs Vital signs: Temp Pulse Resp BP Pulse Ox 98.5 F 103 H 18 154/89 H 96 10/27/18 23:26 10/27/18 23:26 10/27/18 23:26 10/27/18 23:26 10/27/18 23:26 - Laboratory Result Diagrams: 10/28/18 03:27 10/28/18 03:27 Laboratory results interpreted by me: 10/28/18 10/28/18 10/28/18 03:27 03:27 03:27 Hgb 10.5 L Hct 32.0 L Glucose 203 H Albumin 3.3 L Urine Glucose (UA) 150 H Ur Leukocyte Esterase TRACE H Acetaminophen < 10 L Discharge - Discharge Clinical Impression: Altered mental status, unspecified Qualifiers: Altered mental status type: unspecified Qualified Code(s): R41.82 - Altered mental status, unspecified Condition: Good Disposition: HOME, SELF-CARE Instructions: Altered Mental Status ([facility]) Additional Instructions: Please take all of your regular medications. Do not drink alcohol. In the event that you have any other concerning symptoms please return. Referrals: SARAH OSBORNE MD [Primary Care Provider] - Follow up as needed
[2018-10-28 03:40] LABS: ABSOLUTE EOSINOPHILS # (AUTO) 0.2 10^3/uL (0.0-0.6); ABSOLUTE LYMPHOCYTES (AUTO) 3.3 10^3/uL (0.5-4.7); ABSOLUTE MONOCYTES (AUTO) 0.4 10^3/uL (0.1-1.4); ABSOLUTE NEUT (AUTO) 3.6 10^3/uL (1.7-8.2); BASOPHILS % (AUTO) 0.3 % (0-2); EOSINOPHILS % (AUTO) 2.8 % (0-6); HEMOGLOBIN 10.5 g/dL (12.0-15.5); LYMPHOCYTES % (AUTO) 44.2 % (13-45); MEAN CORPUSCULAR HEMOGLOBIN 27.9 pg (27.0-33.4); MEAN CORPUSCULAR HGB CONC 32.8 g/dL (32.0-36.0); MEAN CORPUSCULAR VOLUME 85 fl (80-97); MONOCYTES % (AUTO) 5.5 % (3-13); PLATELET COUNT 228 10^3/uL (150-450); RED BLOOD COUNT 3.76 10^6/uL (3.72-5.28); RED CELL DISTRIBUTION WIDTH 13.6 % (11.5-14.0); SEGMENTED NEUTROPHILS % (AUTO) 47.2 % (42-78); TOTAL CELLS COUNTED % (AUTO) 100 %; WHITE BLOOD COUNT 7.6 10^3/uL (4.0-10.5)
[2018-10-28 03:54] LABS: APPEARANCE,URINE CLOUDY; BILIRUBIN,URINE NEGATIVE (NEGATIVE); COLOR,URINE YELLOW; GLUCOSE, URINE 150 mg/dL (NEGATIVE); KETONES,URINE NEGATIVE (NEGATIVE); LEUKOCYTE ESTERASE,URINE TRACE (NEGATIVE); NITRITE,URINE NEGATIVE (NEGATIVE); PROTEIN,URINE NEGATIVE (NEGATIVE); URINE SPECIFIC GRAVITY 1.019; UROBILINOGEN,URINE NEGATIVE mg/dL (<2.0)
[2018-10-28 04:01] LABS: ALANINE AMINOTRANSFERASE 20 U/L (9-52); ALBUMIN 3.3 g/dL (3.5-5.0); ALKALINE PHOSPHATASE 124 U/L (38-126); ANION GAP 7 (5-19); ASPARTATE AMINO TRANSFERASE 16 U/L (14-36); BILIRUBIN,DIRECT 0.2 mg/dL (0.0-0.4); BILIRUBIN,TOTAL 0.2 mg/dL (0.2-1.3); BLOOD UREA NITROGEN 13 mg/dL (7-20); CALCIUM 9.1 mg/dL (8.4-10.2); CARBON DIOXIDE 28 mmol/L (22-30); CHLORIDE 103 mmol/L (98-107); CREATINE KINASE 131 U/L (30-135); GLUCOSE 203 mg/dL (75-110); POTASSIUM 4.1 mmol/L (3.6-5.0); SODIUM 138.3 mmol/L (137-145); TOTAL PROTEIN 7.3 g/dL (6.3-8.2)
[2018-10-28 04:02] LABS: ACETAMINOPHEN < 10 ug/mL (10-30); ALCOHOL < 10 mg/dL (NONE DETECTED)
[2018-10-28 04:07] LABS: URINE AMPHETAMINES SCREEN NEGATIVE; URINE BARBITURATES SCREEN NEGATIVE; URINE BENZODIAZEPINES SCREEN NEGATIVE; URINE COCAINE SCREEN NEGATIVE; URINE MARIJUANA (THC) SCREEN NEGATIVE; URINE METHADONE SCREEN NEGATIVE; URINE PHENCYCLIDINE SCREEN NEGATIVE
--- NOTE | 2018-10-28 04:30 | RADIOLOGY REPORT (SQ) ---
CLINICAL HISTORY: altered mental status COMPARISON: None. TECHNIQUE: CT HEAD WITHOUT IV CONTRAST on 10/28/2018 2:52 AM CDT This exam was performed according to our departmental dose-optimization program, which includes automated exposure control, adjustment of the mA and/or kV according to patient size and/or use of iterative reconstruction technique. FINDINGS: There is no acute hemorrhage, mass effect or midline shift. Thurman-white differentiation is preserved. There is no hydrocephalus. There is no significant volume loss for age. The calvarium is intact. Orbits and globes are unremarkable. The paranasal sinuses are clear. Mastoid air cells are clear. IMPRESSION: No acute intracranial findings.
--- NOTE | 2018-10-28 04:34 | RADIOLOGY REPORT (SQ) ---
CLINICAL HISTORY: fall COMPARISON: None. TECHNIQUE: XR SHOULDER 2 OR MORE VIEWS 10/28/2018 2:47 AM CDT FINDINGS: There is no fracture. Joint spaces are preserved. Soft tissues are unremarkable. IMPRESSION: No acute osseous findings.
[2018-10-28 05:19] VITALS: BP 147/78
--- NOTE | 2018-10-29 19:07 | EKG REPORT ---
SEVERITY:- NORMAL ECG - SINUS RHYTHM : Confirmed by: Milton Recinos MD 29-Oct-2018 19:06:56
== END 2018-10-28 05:19 | disposition home or self-care (01) ==
LOC: ER 23:15
DX: R41.82 Altered mental status, unspecified (principal); I10 Essential (primary) hypertension; J45.909 Unspecified asthma, uncomplicated; E11.9 Type 2 diabetes mellitus without complications; F32.9 Major depressive disorder, single episode, unspecified; Z79.899 Other long term (current) drug therapy; Z88.5 Allergy status to narcotic agent; Z88.1 Allergy status to other antibiotic agents
CPT/HCPCS: 93005; 99285; 96360; 36415; 80307 ×3; 82550; 85025; 81025; 80053; 81001; 84484; 73030; 70450; 93010; J7030

== ENCOUNTER 2018-12-09 21:17 | Emergency (ER) | payer MEDICAID ==
--- NOTE | 2018-12-09 23:03 | RADIOLOGY REPORT (SQ) ---
EXAM DESCRIPTION: XR HAND 3 OR MORE VIEWS COMPLETED DATE/TME: 12/09/2018 21:52 CLINICAL HISTORY: 48 years Female, bone tenderness COMPARISON: None. Findings: Acute transverse fracture at the proximal metaphysis of the left fifth proximal phalanx with mild posterior medial angulation and 0.2 cm distraction. Bones, joints, and soft tissues of the LEFT XR HAND 3 OR MORE VIEWS appear otherwise unremarkable. IMPRESSION: Acute transverse fracture at the proximal metaphysis of the left fifth proximal phalanx with mild posterior medial angulation and 0.2 cm distraction.
--- NOTE | 2018-12-09 23:41 | ER Document Report ---
ED Medical Screen (RME) - General Chief Complaint: Fall Stated Complaint: LEFT HAND FINGER PAIN Time Seen by Provider: 12/09/18 23:34 Primary Care Provider: BELKIS RANGEL MD [ACTIVE STAFF] - Follow up tomorrow (call for appointment. ) Mode of Arrival: Ambulatory Information source: Patient Notes: 48-year-old female presented to ED for complaint of pain to her hand where she fell. She states that this finger bent completely backwards. An x-ray was done before I saw her. She does have an acute transverse fracture of the proximal metaphysis of the left fifth proximal phalanx with posterior and medial angulation. Patient states if she is got to wait a lot longer she is going to go home. I did tell her she needed to be seen by a provider before being discharged. I have spoken with the charge nurse and she is going to a room. I have greeted and performed a rapid initial assessment of this patient. A comprehensive ED assessment and evaluation of the patient, analysis of test results and completion of medical decision making process will be conducted by an additional ED providers. TRAVEL OUTSIDE OF THE [place] IN LAST 30 DAYS: No - Related Data Allergies/Adverse Reactions: oxycodone HCl [From Percocet] Allergy (Severe, Verified 10/18/17 09:41) resp azithromycin [From Zithromax] Allergy (Intermediate, Verified 10/18/17 09:41) resp codeine phosphate [From Codeine Phosphate Soluble] Allergy (Intermediate, Verified 10/18/17 09:41) resp hydrocodone Allergy (Mild, Verified 10/18/17 09:41) Anaphylaxis hydrocodone bitartrate [From Vicodin] Allergy (Verified 10/18/17 09:41) resp Past Medical History - Social History Family history: Arthritis, CVA, DM, Hyperlipidemia, Hypertension, Malignancy, Thyroid Disfunction - Past Medical History Cardiac Medical History: Reports: Hx Hypertension Pulmonary Medical History: Reports: Hx Asthma Neurological Medical History: Reports: Hx Cerebrovascular Accident - 2005, Hx Migraine Endocrine Medical History: Reports: Hx Diabetes Mellitus Type 2 Renal/ Medical History: Denies: Hx Peritoneal Dialysis GI Medical History: Reports: Hx Gastroesophageal Reflux Disease Musculoskeltal Medical History: Reports Hx Arthritis - fingers, NECK, Reports Hx Musculoskeletal Trauma Psychiatric Medical History: Reports: Hx Anxiety, Hx Bipolar Disorder, Hx Depression, Hx Post Traumatic Stress Disorder Traumatic Medical History: Reports: Hx Fractures Past Surgical History: Reports: Hx Abdominal Surgery - EXPLORATORY, Hx Bowel Surgery, Hx Section - x4, Hx Cholecystectomy, Other - Multiple fatty tumors removed from different areas of her body all benign. Denies: Hx Pacemaker - Immunizations Immunizations up to date: Yes Hx Diphtheria, Pertussis, Tetanus Vaccination: Yes - UNSURE Physical Exam - Vital signs Vitals: Temp Pulse Resp BP Pulse Ox 99.5 F 116 H 16 170/100 H 98 12/09/18 21:40 12/09/18 21:40 12/09/18 21:40 12/09/18 21:40 12/09/18 21:40 Course - Vital Signs Vital signs: Temp Pulse Resp BP Pulse Ox 99.3 F 106 H 18 169/84 H 99 12/10/18 01:07 12/10/18 01:07 12/10/18 01:07 12/10/18 01:07 12/10/18 01:07 Doctor's Discharge - Discharge Clinical Impression: Finger fracture, left Condition: Stable Disposition: HOME, SELF-CARE Instructions: Fractured Finger ([facility]) Additional Instructions: Please keep the splint in place until you see the orthopedic surgeon. Take your previously prescribed pain medication as directed, to help control pain at home, call for an appointment tomorrow with the orthopedic surgeon's office, so that they can evaluate for possible surgery, versus casting. If your pain becomes out of control, or you are having trouble feeling your finger, do not hesitate to return to the emergency department to be reevaluated. Prescriptions: Tramadol HCl [Ultram 50 mg Tablet] 50 mg PO Q6HP PRN #15 tablet PRN Reason: finger pain Referrals: BELKIS RANGEL MD [ACTIVE STAFF] - Follow up tomorrow (call for appointment. )
[2018-12-10] MEDS ORDERED: LIDOCAINE 1%/EPINEPHRINE INJ 20 ML VIAL INJ ONE (00:03)
--- NOTE | 2018-12-10 00:11 | ER Document Report ---
ED General - General Chief Complaint: Fall Stated Complaint: LEFT HAND FINGER PAIN Time Seen by Provider: 12/09/18 23:34 Primary Care Provider: SARAH OSBORNE MD [Primary Care Provider] - Follow up as needed Mode of Arrival: Ambulatory Notes: Patient is a 48-year-old female that presents to the emergency department for chief complaint of left small finger injury. Patient states that she was walking this evening, and tripped and fell around [address], and injured her left small finger, she states it bent back and she heard a crack. She is had significant pain since then, she currently rates the pain as a 8 out of 10 describes as a constant aching sensation. She states it feels numb at the base of her small finger, but can feel at the distal tip, she states she is able to move a little bit but it does cause worse pain. She denies any other injuries, denies loss of consciousness or neck pain, denies numbness, weakness or tingling in her arms or legs. No other complaints at this time. Past Medical History: Diabetes Past Surgical History: x4 Social History: Denies current tobacco, alcohol or drug use. Family History: Reviewed and noncontributory for presenting illness Allergies: Reviewed, see documented allergy list. REVIEW OF SYSTEMS: Other than noted above, the 12 point review of systems was reviewed with the patient and were negative, all pertinent findings are included in the HPI. PHYSICAL EXAMINATION: Vital signs reviewed, nursing noted reviewed. GENERAL: Well-appearing, well-nourished and in no acute distress. HEAD: Atraumatic, normocephalic. EYES: Eyes appear normal, sclera anicteric, conjunctiva are normal. ENT: Moist mucous membranes. NECK: Normal range of motion, supple without lymphadenopathy, no midline tenderness. No step-off or deformity. LUNGS: Breath sounds clear to auscultation bilaterally and equal. No wheezes rales or rhonchi. HEART: Regular rate and rhythm without murmurs EXTREMITIES: The left small finger, is grossly deformed, with ecchymosis on the volar aspect, and edema, there is tenderness with palpation to this area as well. It is angulated laterally, and dorsally. Cap refills less than 3 seconds, and sensation intact distally. The rest the patient's extremity exam is grossly unremarkable, no other injuries noted. NEUROLOGICAL: No focal neurological deficits. Moves all extremities sp ontaneously Motor and sensory grossly intact on exam. PSYCH: Normal mood, normal affect. SKIN: Warm, Dry, normal turgor, no rashes or lesions noted on exposed skin TRAVEL OUTSIDE OF THE [place] IN LAST 30 DAYS: No - Related Data Allergies/Adverse Reactions: oxycodone HCl [From Percocet] Allergy (Severe, Verified 10/18/17 09:41) resp azithromycin [From Zithromax] Allergy (Intermediate, Verified 10/18/17 09:41) resp codeine phosphate [From Codeine Phosphate Soluble] Allergy (Intermediate, Verified 10/18/17 09:41) resp hydrocodone Allergy (Mild, Verified 10/18/17 09:41) Anaphylaxis hydrocodone bitartrate [From Vicodin] Allergy (Verified 10/18/17 09:41) resp Past Medical History - General Information source: Patient - Social History Smoking Status: Never Smoker Family History: Arthritis, CVA, DM, Hyperlipidemia, Hypertension, Malignancy, Thyroid Disfunction - Past Medical History Cardiac Medical History: Reports: Hx Hypertension Pulmonary Medical History: Reports: Hx Asthma Neurological Medical History: Reports: Hx Cerebrovascular Accident - 2004, Hx Migraine Endocrine Medical History: Reports: Hx Diabetes Mellitus Type 2 Renal/ Medical History: Denies: Hx Peritoneal Dialysis GI Medical History: Reports: Hx Gastroesophageal Reflux Disease Musculoskeletal Medical History: Reports Hx Arthritis - fingers, NECK, Reports Hx Musculoskeletal Trauma Psychiatric Medical History: Reports: Hx Anxiety, Hx Bipolar Disorder, Hx Depression, Hx Post Traumatic Stress Disorder Traumatic Medical History: Reports: Hx Fractures Past Surgical History: Reports: Hx Abdominal Surgery - EXPLORATORY, Hx Bowel Surgery, Hx Section - x4, Hx Cholecystectomy, Other - Multiple fatty tumors removed from different areas of her body all benign. Denies: Hx Pacemaker - Immunizations Immunizations up to date: Yes Hx Diphtheria, Pertussis, Tetanus Vaccination: Yes - UNSURE Physical Exam - Vital signs Vitals: Temp Pulse Resp BP Pulse Ox 99.5 F 116 H 16 170/100 H 98 12/09/18 21:40 12/09/18 21:40 12/09/18 21:40 12/09/18 21:40 12/09/18 21:40 Course - Re-evaluation Re-evalutation: Patient seen and examined vital signs reviewed. Patient was evaluated and treated as appropriate for the patient's presenting symptoms and complaint, with consideration of any critical or life threatening conditions that may be associated with their obtained history and exam as noted above. Patient was treated with closed reduction after digital block of her left digit, after x-rays had shown a displaced proximal phalanx fracture of the fifth digit of her left hand, at the base of the proximal phalanx. The patient was re-evaluated and was stable Evaluation was most consistent with left fifth digit fracture of the proximal phalanx. Advised follow-up with orthopedic surgery to call for an appointment tomorrow Plan of care was discussed with the patient at this point, after careful consideration I feel that that patient can be discharged from the emergency department, the patient was educated treatments and reasons to return to the emergency department based on their presumed diagnosis as noted above, they were advised to followup with a primary care physician in 2-3 days. Patient was agreeable to plan of care. *Note is created using voice recognition software and may contain spelling, syntax or grammatical errors. Hand X-Ray 12/09/18 21:52 IMPRESSION: Acute transverse fracture at the proximal metaphysis of the left fifth proximal phalanx with mild posterior medial angulation and 0.2 cm distraction. - Vital Signs Vital signs: Temp Pulse Resp BP Pulse Ox 99.5 F 116 H 16 170/100 H 98 12/09/18 21:40 12/09/18 21:40 12/09/18 21:40 12/09/18 21:40 12/09/18 21:40 Procedures - Joint Reduction/Fracture Care Left Proximal 5th digit Consent obtained: Yes Conscious sedation: No Pre-procedure NV exam: Yes Fracture: Closed Post-procedure NV exam: Yes Reduction attempts: 1 Complications: No Notes: Patient's left digit was anesthetized, with a digital block, with 1% lidocaine with epinephrine, and was reduced, with traction countertraction, and placed in a ulnar gutter splint, patient tolerated procedure well, is neurovascular intact pre-and post procedure. We will have her follow-up with orthopedics. Discharge - Discharge Clinical Impression: Finger fracture, left Qualifiers: Encounter type: initial encounter Finger: little finger Fracture type: closed Phalanx: proximal Fracture alignment: displaced Qualified Code(s): S62.617A - Displaced fracture of proximal phalanx of left little finger, initial encounter for closed fracture Condition: Stable Disposition: HOME, SELF-CARE Instructions: Fractured Finger ([facility]) Additional Instructions: Please keep the splint in place until you see the orthopedic surgeon. Take your previously prescribed pain medication as directed, to help control pain at home, call for an appointment tomorrow with the orthopedic surgeon's office, so that they can evaluate for possible surgery, versus casting. If your pain becomes out of control, or you are having trouble feeling your finger, do not hesitate to return to the emergency department to be reevaluated. Referrals: BELKIS RANGEL MD [ACTIVE STAFF] - Follow up tomorrow (call for appointment. )
[2018-12-10] MEDS ORDERED: MORPHINE SULFATE 10 MG/ML INJ IM ONE (00:50)
[2018-12-10 01:10] VITALS: BP 169/84
== END 2018-12-10 01:19 | disposition home or self-care (01) ==
LOC: ER 21:17
PROC: 0PSVXZZ Reposition Left Finger Phalanx, External Approach (ICD-10-PCS; principal; 2018-12-09)
DX: S62.617A Displaced fracture of proximal phalanx of left little finger, initial encounter for closed fracture (principal); M79.642 Pain in left hand; W19.XXXA Unspecified fall, initial encounter; E11.9 Type 2 diabetes mellitus without complications
CPT/HCPCS: 73130; 26725; J3490; J2270; 96372; 99283

== ENCOUNTER 2019-06-16 18:44 | Emergency (ER) | payer MEDICAID ==
--- NOTE | 2019-06-16 19:13 | ER Document Report ---
ED Medical Screen (RME) - General Chief Complaint: Low Blood Pressure Stated Complaint: LOW BLOOD PRESSURE Time Seen by Provider: 06/16/19 19:04 Primary Care Provider: KATHIE GONZALEZ NP [Primary Care Provider] - Follow up as needed Notes: Patient is a 48-year-old female presents emergency department with a chief complaint of low blood pressure. Patient reports she was at [facility], this is her pain management doctor and reported a blood pressure of 99/77. Patient reports is extremely low for her. Patient reports over the past 2 weeks she has had dizziness, left arm pain, intermittent chest pain and headaches. She states that her doctor told her to come here to the emergency department to rule out cardiac involvement and possible heart attack. TRAVEL OUTSIDE OF THE [place] IN LAST 30 DAYS: No - Related Data Allergies/Adverse Reactions: oxycodone HCl [From Percocet] Allergy (Severe, Verified 06/16/19 19:04) resp azithromycin [From Zithromax] Allergy (Intermediate, Verified 06/16/19 19:04) resp codeine phosphate [From Codeine Phosphate Soluble] Allergy (Intermediate, Verified 06/16/19 19:04) resp hydrocodone Allergy (Mild, Verified 06/16/19 19:04) Anaphylaxis hydrocodone bitartrate [From Vicodin] Allergy (Verified 06/16/19 19:04) resp Home Medications: propranalol. [place] Past Medical History - Social History Frequency of alcohol use: None Drug Abuse: None Family history: Arthritis, CVA, DM, Hyperlipidemia, Hypertension, Malignancy, Thyroid Disfunction - Past Medical History Cardiac Medical History: Reports: Hx Hypertension Pulmonary Medical History: Reports: Hx Asthma Neurological Medical History: Reports: Hx Cerebrovascular Accident - 2005, Hx Migraine Endocrine Medical History: Reports: Hx Diabetes Mellitus Type 2 Renal/ Medical History: Denies: Hx Peritoneal Dialysis GI Medical History: Reports: Hx Gastroesophageal Reflux Disease Musculoskeltal Medical History: Reports Hx Arthritis - fingers, NECK, Reports Hx Musculoskeletal Trauma Psychiatric Medical History: Reports: Hx Anxiety, Hx Bipolar Disorder, Hx Depression, Hx Post Traumatic Stress Disorder Traumatic Medical History: Reports: Hx Fractures Past Surgical History: Reports: Hx Abdominal Surgery - EXPLORATORY, Hx Bowel Surgery, Hx Section - x4, Hx Cholecystectomy, Other - Multiple fatty tumors removed from different areas of her body all benign. Denies: Hx Pacemaker - Immunizations Immunizations up to date: Yes Hx Diphtheria, Pertussis, Tetanus Vaccination: Yes - UNSURE Physical Exam - Vital signs Vitals: Temp Pulse Resp BP Pulse Ox 98.3 F 110 H 20 101/62 98 06/16/19 18:58 06/16/19 18:58 06/16/19 18:58 06/16/19 18:58 06/16/19 18:58 - Cardiovascular Rhythm: Regular Heart sounds: S1 appreciated, S2 appreciated Course - Re-evaluation Re-evalutation: 06/16/19 19:13 I have greeted and performed a rapid initial assessment of this patient. A comprehensive ED assessment and evaluation of the patient, analysis of test results and completion of the medical decision making process will be conducted by additional ED providers. - Vital Signs Vital signs: Temp Pulse Resp BP Pulse Ox 98.3 F 110 H 20 101/62 98 06/16/19 18:58 06/16/19 18:58 06/16/19 18:58 06/16/19 18:58 06/16/19 18:58 Doctor's Discharge - Discharge Referrals: KATHIE GONZALEZ, [employer]ICIAN [Primary Care Provider] - Follow up as needed
[2019-06-16 19:40] LABS: ABSOLUTE BASOPHILS # (AUTO) 0.1 10^3/uL (0.0-0.2); ABSOLUTE EOSINOPHILS # (AUTO) 0.3 10^3/uL (0.0-0.6); ABSOLUTE LYMPHOCYTES (AUTO) 4.9 10^3/uL (0.5-4.7); ABSOLUTE MONOCYTES (AUTO) 0.6 10^3/uL (0.1-1.4); ABSOLUTE NEUT (AUTO) 8.2 10^3/uL (1.7-8.2); BASOPHILS % (AUTO) 0.7 % (0-2); EOSINOPHILS % (AUTO) 2.4 % (0-6); HEMOGLOBIN 12.2 g/dL (12.0-15.5); LYMPHOCYTES % (AUTO) 34.8 % (13-45); MEAN CORPUSCULAR HEMOGLOBIN 29.1 pg (27.0-33.4); MEAN CORPUSCULAR VOLUME 88 fl (80-97); MONOCYTES % (AUTO) 4.3 % (3-13); PLATELET COUNT 365 10^3/uL (150-450); RED BLOOD COUNT 4.19 10^6/uL (3.72-5.28); RED CELL DISTRIBUTION WIDTH 13.5 % (11.5-14.0); SEGMENTED NEUTROPHILS % (AUTO) 57.8 % (42-78); TOTAL CELLS COUNTED % (AUTO) 100 %; WHITE BLOOD COUNT 14.1 10^3/uL (4.0-10.5)
[2019-06-16 19:56] LABS: ALKALINE PHOSPHATASE 129 U/L (38-126); ANION GAP 14 (5-19); ASPARTATE AMINO TRANSFERASE 16 U/L (14-36); BILIRUBIN,DIRECT 0.3 mg/dL (0.0-0.4); BILIRUBIN,TOTAL 0.4 mg/dL (0.2-1.3); BLOOD UREA NITROGEN 16 mg/dL (7-20); CALCIUM 10.2 mg/dL (8.4-10.2); CARBON DIOXIDE 23 mmol/L (22-30); CHLORIDE 101 mmol/L (98-107); GLUCOSE 246 mg/dL (75-110); POTASSIUM 4.8 mmol/L (3.6-5.0); TOTAL PROTEIN 8.6 g/dL (6.3-8.2)
--- NOTE | 2019-06-16 20:03 | ER Document Report ---
ED General - General Chief Complaint: Low Blood Pressure Stated Complaint: LOW BLOOD PRESSURE Time Seen by Provider: 06/16/19 19:04 Primary Care Provider: KATHIE GONZALEZ NP [NURSE PRACTITIONER] - Follow up as needed INGRIS PALOMO MD [Primary Care Provider] - Follow up tomorrow Mode of Arrival: Ambulatory Information source: Patient Notes: 48-year-old female with history of high blood pressure since emergency department with complaints of low blood pressure. She reports she has been feeling dizzy with nausea and a headache for the past 2 weeks on a daily basis. She reports she was at pain management today when they took her blood pressure was very low for her 99 systolic and they told to come to the ER. She also reports that recently she was placed on a new medication for blood pressure by Dr. Palomo. She also takes a blood pressure medication from her [facility] provider. She has headache medication and is asking if she can take that medi cation. She was offered Tylenol but declined. Patient denies chest pain. Denies dizziness at this time denies fever vomiting diarrhea. TRAVEL OUTSIDE OF THE [place] IN LAST 30 DAYS: No - HPI Onset: Other Onset/Duration: Waxing and waning Associated symptoms: Nausea Exacerbated by: Denies Relieved by: Denies Similar symptoms previously: No Recently seen / treated by doctor: No - Related Data Allergies/Adverse Reactions: oxycodone HCl [From Percocet] Allergy (Severe, Verified 06/16/19 19:04) resp azithromycin [From Zithromax] Allergy (Intermediate, Verified 06/16/19 19:04) resp codeine phosphate [From Codeine Phosphate Soluble] Allergy (Intermediate, Verified 06/16/19 19:04) resp hydrocodone Allergy (Mild, Verified 06/16/19 19:04) Anaphylaxis hydrocodone bitartrate [From Vicodin] Allergy (Verified 06/16/19 19:04) resp Home Medications: propranalol. [place] Past Medical History - General Information source: Patient - Social History Smoking Status: Never Smoker Frequency of alcohol use: None Drug Abuse: None Occupation: Disabled Lives with: Family Family History: Arthritis, CVA, DM, Hyperlipidemia, Hypertension, Malignancy, Thyroid Disfunction Patient has suicidal ideation: No Patient has homicidal ideation: No - Past Medical History Cardiac Medical History: Reports: Hx Hypertension Pulmonary Medical History: Reports: Hx Asthma Neurological Medical History: Reports: Hx Cerebrovascular Accident - 2005, Hx Migraine Endocrine Medical History: Reports: Hx Diabetes Mellitus Type 2 Renal/ Medical History: Denies: Hx Peritoneal Dialysis GI Medical History: Reports: Hx Gastroesophageal Reflux Disease Musculoskeletal Medical History: Reports Hx Arthritis - fingers, NECK, Reports Hx Musculoskeletal Trauma Psychiatric Medical History: Reports: Hx Anxiety, Hx Bipolar Disorder, Hx Depression, Hx Post Traumatic Stress Disorder Traumatic Medical History: Reports: Hx Fractures Past Surgical History: Reports: Hx Abdominal Surgery - EXPLORATORY, Hx Bowel Surgery, Hx Section - x4, Hx Cholecystectomy, Other - Multiple fatty tumors removed from different areas of her body all benign. Denies: Hx Pacemaker - Immunizations Immunizations up to date: Yes Hx Diphtheria, Pertussis, Tetanus Vaccination: Yes - UNSURE Review of Systems - Review of Systems Notes: Review HPI for review of systems., All other systems negative Physical Exam - Vital signs Vitals: Temp Pulse Resp BP Pulse Ox 98.3 F 110 H 20 101/62 98 06/16/19 18:58 06/16/19 18:58 06/16/19 18:58 06/16/19 18:58 06/16/19 18:58 - General General appearance: Appears well, Alert In distress: None - HEENT Head: Normocephalic, Atraumatic Eyes: Normal Conjunctiva: Normal Extraocular movements intact: Yes Eyelashes: Normal Pupils: PERRL Mucous membranes: Moist Pharynx: Normal Neck: Normal, Supple. No: Lymphadenopathy - Respiratory Respiratory status: No respiratory distress Chest status: Nontender Breath sounds: Normal Chest palpation: Normal - Cardiovascular Rhythm: Regular Heart sounds: Normal auscultation Murmur: No - Abdominal Inspection: Normal Distension: No distension Bowel sounds: Normal Tenderness: Nontender Organomegaly: No organomegaly - Back Back: Normal - Extremities General upper extremity: Normal ROM, Normal strength General lower extremity: Normal ROM, Normal strength, Normal weight bearing - Neurological Neuro grossly intact: Yes Cognition: Normal Orientation: AAOx4 [place] Coma Scale Eye Opening: Spontaneous Sofi Coma Scale Verbal: Oriented [place] Coma Scale Motor: Obeys Commands Sofi Coma Scale Total: 15 Speech: Normal Cerebellar coordination: Normal - Psychological Associated symptoms: Normal affect, Normal mood - Skin Skin Temperature: Warm Skin Moisture: Dry Skin Color: Normal Course - Re-evaluation Re-evalutation: 06/16/19 23:21 48-year-old female presents emergency department with complaints of low blood pressure feeling dizzy headache for the past 2 weeks on and off. Patient reports that she usually has high blood pressure. She reports she is taking 2 blood pressure medications. 1 was prescribed by her mental health provider the other was just prescribed by her primary care provider Dr. Palomo. Patient denies chest pain at this time. Reports she does have a headache but she has headaches and dizziness every day. She is asking take her headache medication. Labs unremarkable troponin negative. Chest x-ray negative. Patient was instructed on the importance of monitoring her blood pressure and follow-up with Dr. vera Palomo tomorrow to discuss her blood pressure medications. She verbalized understanding to all information reports she felt fine and safe going home. Chest X-Ray 06/16/19 21:02 IMPRESSION: No acute cardiopulmonary disease. Laboratory 06/16/19 06/16/19 06/16/19 19:17 19:17 19:17 WBC 14.1 H RBC 4.19 Hgb 12.2 Hct 37.0 MCV 88 MCH 29.1 MCHC 33.0 RDW 13.5 Plt Count 365 Lymph % (Auto) 34.8 [place] % (Auto) 4.3 Eos % (Auto) 2.4 Baso % (Auto) 0.7 Absolute Neuts (auto) 8.2 Absolute Lymphs (auto) 4.9 H Absolute Monos (auto) 0.6 Absolute Eos (auto) 0.3 Absolute Basos (auto) 0.1 Seg Neutrophils % 57.8 Sodium 138.3 Potassium 4.8 Chloride 101 Carbon Dioxide 23 Anion Gap 14 BUN 16 Creatinine 1.17 Est GFR ( Amer) > 60 Est GFR (MDRD) Non-Af 49 L Glucose 246 H Calcium 10.2 Total Bilirubin 0.4 Direct Bilirubin 0.3 Neonat Total Bilirubin Not Reportable Neonat Direct Bilirubin Not Reportable Neonat Indirect Bili Not Reportable AST 16 ALT 14 Alkaline Phosphatase 129 H Troponin I < 0.012 Total Protein 8.6 H Albumin 4.0 Urine Color Urine Appearance Urine pH Ur Specific [place] Urine Protein Urine Glucose (UA) Urine Ketones Urine Blood Urine Nitrite Urine Bilirubin Urine Urobilinogen Ur Leukocyte Esterase Urine WBC (Auto) Urine RBC (Auto) U Hyaline Cast (Auto) Urine Bacteria (Auto) Squamous Epi Cells Auto Urine Mucus (Auto) Urine Ascorbic Acid 06/16/19 20:31 WBC RBC Hgb Hct MCV MCH MCHC RDW Plt Count Lymph % (Auto) [place] % (Auto) Eos % (Auto) Baso % (Auto) Absolute Neuts (auto) Absolute Lymphs (auto) Absolute Monos (auto) Absolute Eos (auto) Absolute Basos (auto) Seg Neutrophils % Sodium Potassium Chloride Carbon Dioxide Anion Gap BUN Creatinine Est GFR ( Amer) Est GFR (MDRD) Non-Af Glucose Calcium Total Bilirubin Direct Bilirubin Neonat Total Bilirubin Neonat Direct Bilirubin Neonat Indirect Bili AST ALT Alkaline Phosphatase Troponin I Total Protein Albumin Urine Color YELLOW Urine Appearance SLIGHTLY-CLOUDY Urine pH 5.0 Ur Specific [place] 1.025 Urine Protein NEGATIVE Urine Glucose (UA) >=500 H Urine Ketones NEGATIVE Urine Blood NEGATIVE Urine Nitrite NEGATIVE Urine Bilirubin NEGATIVE Urine Urobilinogen NEGATIVE Ur Leukocyte Esterase SMALL H Urine WBC (Auto) 15 Urine RBC (Auto) 5 U Hyaline Cast (Auto) 1 Urine Bacteria (Auto) TRACE Squamous Epi Cells Auto 9 Urine Mucus (Auto) RARE Urine Ascorbic Acid NEGATIVE - Vital Signs Vital signs: Temp Pulse Resp BP Pulse Ox 98.9 F 110 H 23 H 119/72 99 06/16/19 20:01 06/16/19 18:58 06/16/19 22:01 06/16/19 22:01 06/16/19 22:01 - Laboratory Result Diagrams: 06/16/19 19:17 06/16/19 19:17 Laboratory results interpreted by me: 06/16/19 06/16/19 06/16/19 19:17 19:17 20:31 WBC 14.1 H Absolute Lymphs (auto) 4.9 H Est GFR (MDRD) Non-Af 49 L Glucose 246 H Alkaline Phosphatase 129 H Total Protein 8.6 H Urine Glucose (UA) >=500 H Ur Leukocyte Esterase SMALL H - Diagnostic Test Radiology reviewed: Image reviewed, Reports reviewed Discharge - Discharge Clinical Impression: Dizziness Hypotension Qualifiers: Hypotension type: unspecified hypotension type Qualified Code(s): I95.9 - H ypotension, unspecified Condition: Stable Disposition: HOME, SELF-CARE Instructions: Dizziness ([facility]), Headache ([facility]), Hypotension ([facility]) Additional Instructions: *You have been evaluated for Low blood pressure, headache, dizziness *Follow up with Dr Salcido tomorrow to discuss your blood pressure medications *Return to ED for worsening condition, changes, needs Referrals: KATHIE GONZALEZ, [place] [NURSE PRACTITIONER] - Follow up as needed INGRIS PALOMO MD [Primary Care Provider] - Follow up tomorrow
--- NOTE | 2019-06-16 20:11 | EKG REPORT ---
SEVERITY:- OTHERWISE NORMAL ECG - SINUS TACHYCARDIA : Confirmed by: Milton Recinos MD 16-Jun-2019 20:10:41
[2019-06-16 21:33] LABS: APPEARANCE,URINE SLIGHTLY-CLOUDY; BILIRUBIN,URINE NEGATIVE (NEGATIVE); COLOR,URINE YELLOW; GLUCOSE, URINE >=500 mg/dL (NEGATIVE); KETONES,URINE NEGATIVE (NEGATIVE); LEUKOCYTE ESTERASE,URINE SMALL (NEGATIVE); NITRITE,URINE NEGATIVE (NEGATIVE); PROTEIN,URINE NEGATIVE (NEGATIVE); URINE SPECIFIC GRAVITY 1.025; UROBILINOGEN,URINE NEGATIVE mg/dL (<2.0)
--- NOTE | 2019-06-16 21:43 | RADIOLOGY REPORT (SQ) ---
XR CHEST 2 VIEWS CLINICAL STATEMENT: chest pain COMPARISON: 05/16/2017 FINDINGS: Cardiomediastinal silhouette is within normal limits. There is no focal lung consolidation or pleural effusion. No evidence of pulmonary edema or pneumothorax. IMPRESSION: No acute cardiopulmonary disease.
[2019-06-16 22:25] VITALS: BP 119/72
== END 2019-06-16 22:36 | disposition home or self-care (01) ==
LOC: ER 18:44
DX: R42 Dizziness and giddiness (principal); I95.9 Hypotension, unspecified; R51 Headache; I10 Essential (primary) hypertension; E11.9 Type 2 diabetes mellitus without complications; Z86.73 Personal history of transient ischemic attack (TIA), and cerebral infarction without residual deficits; Z90.49 Acquired absence of other specified parts of digestive tract; Z88.6 Allergy status to analgesic agent; Z88.3 Allergy status to other anti-infective agents
CPT/HCPCS: 36415; 71046; 80053; 81001; 84484; 85025; 93005; 93010; 99285

== ENCOUNTER 2019-09-10 08:47 | Emergency (ER) | payer MEDICAID ==
[2019-09-10 08:54] VITALS: BP 126/71
[2019-09-10] MEDS ORDERED: KETOROLAC TROMETHAMINE INJ/PF 30 MG/1 ML SDV IM ONE (09:43)
--- NOTE | 2019-09-10 09:49 | ER Document Report ---
ED Extremity Problem, Upper - General Chief Complaint: Shoulder Pain Stated Complaint: SHOULDER PAIN Time Seen by Provider: 09/10/19 09:42 Primary Care Provider: [facility] [Provider Group] - Follow up as needed INGRIS PALOMO MD [Primary Care Provider] - Follow up in 3-5 days Mode of Arrival: Ambulatory Information source: Patient Notes: 48-year-old female presented to ED for complaint of left shoulder pain. She states the pain is been hurting for about 9 months when she fell in November last year injuring her finger. She states she did get x-ray about 2 weeks ago and they did not show anything. She states she does go to Dr. Palomo and as well as going to pain management clinic. She states [facility] to get the x-ray. Patient is alert oriented respirations regular and unlabored speaking in full sentences walks with even steady gait. TRAVEL OUTSIDE OF THE [place] IN LAST 30 DAYS: No - HPI Patient complains to provider of: Pain, Left, Shoulder Onset: Other Recent injury: No - Follow-up 9 months Severity of pain: Moderate Pain Level: 3 Context: Other - Fell in November Associated symptoms: Other Exacerbated by: Movement, Exertion - Left shoulder Relieved by: Rest, Positioning Similar symptoms previously: Yes Recently seen / treated by doctor: Yes - Related Data Allergies/Adverse Reactions: oxycodone HCl [From Percocet] Allergy (Severe, Verified 06/16/19 19:04) resp azithromycin [From Zithromax] Allergy (Intermediate, Verified 06/16/19 19:04) resp codeine phosphate [From Codeine Phosphate Soluble] Allergy (Intermediate, Verified 06/16/19 19:04) resp hydrocodone Allergy (Mild, Verified 06/16/19 19:04) Anaphylaxis hydrocodone bitartrate [From Vicodin] Allergy (Verified 06/16/19 19:04) resp Past Medical History - General Information source: Patient - Social History Smoking Status: Never Smoker Frequency of alcohol use: None Drug Abuse: None Lives with: Family Family History: Arthritis, CVA, DM, Hyperlipidemia, Hypertension, Malignancy, Thyroid Disfunction Patient has suicidal ideation: No Patient has homicidal ideation: No - Past Medical History Cardiac Medical History: Reports: Hx Hypertension Pulmonary Medical History: Reports: Hx Asthma EENT Medical History: Reports: None Neurological Medical History: Reports: Hx Cerebrovascular Accident - 2005, Hx Migraine Endocrine Medical History: Reports: Hx Diabetes Mellitus Type 2 Renal/ Medical History: Reports: None Malignancy Medical History: Reports: None GI Medical History: Reports: Hx Gastroesophageal Reflux Disease Musculoskeletal Medical History: Reports Hx Arthritis - fingers, NECK, Reports Hx Musculoskeletal Trauma Skin Medical History: Reports None Psychiatric Medical History: Reports: Hx Anxiety, Hx Bipolar Disorder, Hx Depression, Hx Post Traumatic Stress Disorder Traumatic Medical History: Reports: Hx Fractures Infectious Medical History: Reports: None Past Surgical History: Reports: Hx Abdominal Surgery - EXPLORATORY, Hx Bowel Surgery, Hx Section - x4, Hx Cholecystectomy, Other - Multiple fatty tumors removed from different areas of her body all benign - Immunizations Immunizations up to date: Yes Hx Diphtheria, Pertussis, Tetanus Vaccination: Yes - UNSURE Review of Systems - Review of Systems Constitutional: No symptoms reported EENT: No symptoms reported Cardiovascular: No symptoms reported Respiratory: No symptoms reported Gastrointestinal: No symptoms reported Genitourinary: No symptoms reported Female Genitourinary: No symptoms reported Musculoskeletal: Joint pain. denies: Joint swelling, Muscle pain, Muscle stiffness Skin: No symptoms reported Hematologic/Lymphatic: No symptoms reported Neurological/Psychological: No symptoms reported -: Yes All other systems reviewed and negative Physical Exam - Vital signs Vitals: Temp Pulse Resp BP Pulse Ox 98.1 F 94 18 126/71 H 96 09/10/19 08:52 09/10/19 08:52 09/10/19 08:52 09/10/19 08:52 09/10/19 08:52 Interpretation: Normal - General General appearance: Appears well, Alert - HEENT Head: Normocephalic, Atraumatic Eyes: Normal Pupils: PERRL - Respiratory Respiratory status: No respiratory distress Chest status: Nontender Breath sounds: Normal Chest palpation: Normal - Cardiovascular Rhythm: Regular Heart sounds: Normal auscultation Murmur: No - Abdominal Inspection: Normal Distension: No distension Bowel sounds: Normal Tenderness: Nontender Organomegaly: No organomegaly - Back Back: Normal, Nontender - Extremities General upper extremity: Normal inspection, Normal color, Normal temperature General lower extremity: Normal inspection, Nontender, Normal color, Normal ROM, Normal temperature, Normal weight bearing. No: Ketty's sign Shoulder: Limited ROM - Due to pain. She states she injured it about 9 months ago in November 2018. She states x-rays were -2 weeks ago - Neurological Neuro grossly intact: Yes Cognition: Normal Orientation: AAOx4 Sofi Coma Scale Eye Opening: Spontaneous [place] Coma Scale Verbal: Oriented [place] Coma Scale Motor: Obeys Commands [place] Coma Scale Total: 15 Speech: Normal Motor strength normal: LUE, RUE, LLE, RLE Sensory: Normal - Psychological Associated symptoms: Normal affect, Normal mood - Skin Skin Temperature: Warm Skin Moisture: Dry Skin Color: Normal Course - Re-evaluation Re-evalutation: 09/10/19 12:46 No new injury to the shoulder. She states she is been having pain for about 9 months. I have instructed her to please follow-up with orthopedics. She has been treated with Toradol in the emergency room. Patient verbalized understanding and agreement with this treatment plan. She was given a list of shoulder exercises and instructions on ice packs. Patient verbalized understanding and agreement this and she was discharged home. - Vital Signs Vital signs: Temp Pulse Resp BP Pulse Ox 98.1 F 94 18 126/71 H 96 09/10/19 09:36 09/10/19 08:52 09/10/19 08:52 09/10/19 08:52 09/10/19 08:52 Discharge - Discharge Clinical Impression: Pain of left shoulder joint on movement Condition: Stable Disposition: HOME, SELF-CARE Additional Instructions: Shoulder Injury You have injured your shoulder. This usually results from stretching or tearing of the tendons during trauma. Time and protection are required in order to heal properly. Many injuries are quite disabling, and should be taken seriously. Initial treatment includes cold packs and a sling to rest the shoulder. The physician has assessed the seriousness of your injury, and has outlined a treatment plan. Understand that this treatment may change, depending on how you progress. If a re-examination was recommended, it is important that you follow up as instructed. Some shoulder injuries (such as partial tear of the rotator cuff) are only suspected after you've failed to improve. Call us if there's severe pain, numbness, or loss of function. Exercise Program for the Shoulder Since the shoulder moves in so many directions, the joint attachment is weak. Muscles provide most of the stability to the shoulder. You must exercise your shoulder to prevent painful instability or stiffening. PASSIVE - These may be begun within a few days of the injury. While standing, lean forward, allowing the arm to hang down towards the floor. Move the arm in small circles while slowly twisting your chest towards and away from the hanging arm. Do this for one minute. ACTIVE - These may be performed when the doctor gives permission. Begin with the arms at the sides. Raise the arms forward (shoulder's width apart) until they reach shoulder level. Then slowly swing both arms back until they are aiming straight out away from each other. Then bring them forward again, and finally, lower them to your sides. Repeat 20 to 30 times. As you improve, put weights in your hands for the exercise. Start with one pound, and work up to 10 pounds. Never use more than is comfortable. Athletes may work up to 30 pounds. Ibuprofen Ibuprofen is an excellent, safe drug for pain control. In addition, it has potent antiinflammatory effects which are beneficial, especially in the treatment of injuries, arthritis, or tendonitis. It's best to take ibuprofen with food. Persons with ulcer disease or allergy to aspirin should notify their physician of this before taking ibuprofen. Take the medication exactly as prescribed. Don't take additional doses unless instructed to do so by your doctor. If you develop wheezing, shortness of breath, hives, faintness, stomach pain, vomiting, or dark black stools, return for re-evaluation at once. Ice Packs Apply ice packs frequently against the painful area. Many different schedules are recommended, such as "20 minutes on, 20 minutes off" or "one hour ice, two hours rest." If you need to work, you may need to go longer between ice treatments. You should plan to have the area ice packed AT LEAST one fourth of the time. The ice should be applied over the wrap, tape, or splint, or over a layer of cloth -- not directly against the skin. Some ice bags have a built-in cloth and can be put directly on the skin. FOLLOW-UP CARE: If you have been referred to a physician for follow-up care, call the physicians office for an appointment as you were instructed or within the next two days. If you experience worsening or a significant change in your symptoms, notify the physician immediately or return to the Emergency Department at any time for re-evaluation. Forms: Elevated Blood Pressure Referrals: INGRIS PALOMO MD [Primary Care Provider] - Follow up in 3-5 days [facility] [Provider Group] - Follow up as needed
== END 2019-09-10 09:50 | disposition home or self-care (01) ==
LOC: ER 08:47
DX: M25.512 Pain in left shoulder (principal); W19.XXXA Unspecified fall, initial encounter; I10 Essential (primary) hypertension; J45.909 Unspecified asthma, uncomplicated; E11.9 Type 2 diabetes mellitus without complications; Z88.6 Allergy status to analgesic agent; Z88.5 Allergy status to narcotic agent; Z88.1 Allergy status to other antibiotic agents
CPT/HCPCS: 99283; 96372; J1885

== ENCOUNTER 2019-10-21 19:15 | Emergency (ER) | payer MEDICAID ==
[2019-10-21] MEDS ORDERED: NORMAL SALINE 1000 ML 1,000 ML IV ONE (19:55)
--- NOTE | 2019-10-21 19:56 | ER Document Report ---
ED Medical Screen (RME) - General Chief Complaint: Fall Stated Complaint: FALL/LEFT SIDE PAIN Time Seen by Provider: 10/21/19 19:53 Primary Care Provider: INGRIS PALOMO MD [Primary Care Provider] - Follow up as needed Mode of Arrival: Ambulatory Information source: Patient Notes: 48-year-old female presents to ED for complaint of falling at target at 4:45 PM. She states she has pain to her left hand wrist and shoulder and hip. She also has palpitations. She is short of breath today and yesterday. She states she always has tachycardia. Her pulse in the triage is 128. We will get labs x-ray EKG and treat with Tylenol and aspirin. I have ordered IV fluids for the tachycardia. I have greeted and performed a rapid initial assessment of this patient. A comprehensive ED assessment and evaluation of the patient, analysis of test results and completion of medical decision making process will be conducted by an additional ED providers. TRAVEL OUTSIDE OF THE [place] IN LAST 30 DAYS: No - Related Data Allergies/Adverse Reactions: oxycodone HCl [From Percocet] Allergy (Severe, Verified 10/21/19 19:43) resp azithromycin [From Zithromax] Allergy (Intermediate, Verified 10/21/19 19:43) resp codeine phosphate [From Codeine Phosphate Soluble] Allergy (Intermediate, Verified 10/21/19 19:43) resp hydrocodone Allergy (Mild, Verified 10/21/19 19:43) Anaphylaxis hydrocodone bitartrate [From Vicodin] Allergy (Verified 10/21/19 19:43) resp Home Medications: Cymbalta, Levemir, metformin, januvia, rexulti, buspirone, meloxicam, morphine, flexeril, trazodone, vitamin D Past Medical History - Social History Frequency of alcohol use: None Drug Abuse: None Family history: Arthritis, CVA, DM, Hyperlipidemia, Hypertension, Malignancy, Thyroid Disfunction - Past Medical History Cardiac Medical History: Reports: Hx Hypertension Pulmonary Medical History: Reports: Hx Asthma Neurological Medical History: Reports: Hx Cerebrovascular Accident - 2005, Hx Migraine Endocrine Medical History: Reports: Hx Diabetes Mellitus Type 2 GI Medical History: Reports: Hx Gastroesophageal Reflux Disease Musculoskeltal Medical History: Reports Hx Arthritis - fingers, NECK, Reports Hx Musculoskeletal Trauma Psychiatric Medical History: Reports: Hx Anxiety, Hx Bipolar Disorder, Hx Depression, Hx Post Traumatic Stress Disorder Traumatic Medical History: Reports: Hx Fractures Past Surgical History: Reports: Hx Abdominal Surgery - EXPLORATORY, Hx Bowel Surgery, Hx Section - x4, Hx Cholecystectomy, Other - Multiple fatty tumors removed from different areas of her body all benign - Immunizations Immunizations up to date: Yes Hx Diphtheria, Pertussis, Tetanus Vaccination: Yes - UNSURE Physical Exam - Vital signs Vitals: Temp Pulse Resp BP Pulse Ox 98.7 F 134 H 20 141/93 H 98 10/21/19 19:19 10/21/19 19:19 10/21/19 19:19 10/21/19 19:19 10/21/19 19:19 Course - Vital Signs Vital signs: Temp Pulse Resp BP Pulse Ox 98.7 F 128 H 20 141/93 H 98 10/21/19 19:19 10/21/19 19:50 10/21/19 19:19 10/21/19 19:19 10/21/19 19:19 Doctor's Discharge - Discharge Referrals: INGRIS PALOMO MD [Primary Care Provider] - Follow up as needed
[2019-10-21 21:06] LABS: ABSOLUTE BASOPHILS # (AUTO) 0.1 10^3/uL (0.0-0.2); ABSOLUTE EOSINOPHILS # (AUTO) 0.1 10^3/uL (0.0-0.6); ABSOLUTE MONOCYTES (AUTO) 0.4 10^3/uL (0.1-1.4); TOTAL CELLS COUNTED % (AUTO) 100 %
[2019-10-21 21:13] LABS: ABSOLUTE NEUT (AUTO) 5.2 10^3/uL (1.7-8.2); BASOPHILS % (AUTO) 0.8 % (0-2); EOSINOPHILS % (AUTO) 1.1 % (0-6); HEMATOCRIT 41.3 % (36.0-47.0); HEMOGLOBIN 13.7 g/dL (12.0-15.5); LYMPHOCYTES % (AUTO) 40.9 % (13-45); MEAN CORPUSCULAR HEMOGLOBIN 28.3 pg (27.0-33.4); MEAN CORPUSCULAR HGB CONC 33.2 g/dL (32.0-36.0); MEAN CORPUSCULAR VOLUME 85 fl (80-97); MONOCYTES % (AUTO) 4.3 % (3-13); PLATELET COUNT 312 10^3/uL (150-450); RED BLOOD COUNT 4.84 10^6/uL (3.72-5.28); SEGMENTED NEUTROPHILS % (AUTO) 52.9 % (42-78); WHITE BLOOD COUNT 9.8 10^3/uL (4.0-10.5)
[2019-10-21 21:23] LABS: ALBUMIN 4.5 g/dL (3.5-5.0); ALKALINE PHOSPHATASE 150 U/L (38-126); ANION GAP 11 (5-19); ASPARTATE AMINO TRANSFERASE 21 U/L (14-36); BILIRUBIN,DIRECT 0.1 mg/dL (0.0-0.4); BILIRUBIN,TOTAL 0.6 mg/dL (0.2-1.3); BLOOD UREA NITROGEN 13 mg/dL (7-20); CALCIUM 10.4 mg/dL (8.4-10.2); CARBON DIOXIDE 28 mmol/L (22-30); CHLORIDE 97 mmol/L (98-107); POTASSIUM 4.3 mmol/L (3.6-5.0); TOTAL PROTEIN 9.1 g/dL (6.3-8.2)
--- NOTE | 2019-10-21 21:23 | RADIOLOGY REPORT (SQ) ---
EXAM DESCRIPTION: X-ray, two views of the chest CLINICAL HISTORY: 48 years Female, Palpitations, fall, left hand wrist and shoulder p COMPARISON: Two views of the chest June 16, 2019 FINDINGS: Lungs: Lungs are clear. No pneumonia or edema. No pneumothorax or pleural effusion. Mediastinum: Cardiac and mediastinal silhouette are normal. Bones: Osseous structures are normal. No displaced rib fractures are identified. The shoulders are appropriately positioned bilaterally. Spine is intact. Mildly dilated air-filled loops of bowel are seen in the upper abdomen which are nonspecific. IMPRESSION: No acute process.
--- NOTE | 2019-10-21 21:24 | RADIOLOGY REPORT (SQ) ---
EXAM DESCRIPTION: Fall. Shoulder pain. CLINICAL HISTORY: 48 years Female, Palpitations, fall, left hand wrist and shoulder p COMPARISON: None. FINDINGS: The glenohumeral joint is located. No fracture, subluxation or dislocation. AC joint appears normal. Scapula is intact. Visualized portion of the left chest is normal. IMPRESSION: No acute process. No fracture or dislocation.
--- NOTE | 2019-10-21 21:26 | RADIOLOGY REPORT (SQ) ---
EXAM DESCRIPTION: XR WRIST 3 OR MORE VIEWS, XR HIP 2 OR MORE VIEWS, XR HAND 3 OR MORE VIEWS COMPLETED DATE/TME: 10/21/2019 19:53 (accession [id number]), 10/21/2019 19:57 (accession [id number]), 10/21/2019 19:53 (accession [id number]) CLINICAL HISTORY: 48 years, Female, Palpitations, fall, left hand wrist and shoulder p Findings: Bony alignment is anatomic. No fracture or dislocation. Mild radiocarpal degenerative changes. Left hip is intact. Pubic rami are intact. IMPRESSION: No fracture.
--- NOTE | 2019-10-21 21:26 | RADIOLOGY REPORT (SQ) ---
EXAM DESCRIPTION: XR WRIST 3 OR MORE VIEWS, XR HIP 2 OR MORE VIEWS, XR HAND 3 OR MORE VIEWS COMPLETED DATE/TME: 10/21/2019 19:53 (accession [id number]), 10/21/2019 19:57 (accession [id number]), 10/21/2019 19:53 (accession [id number]) CLINICAL HISTORY: 48 years, Female, Palpitations, fall, left hand wrist and shoulder p Findings: Bony alignment is anatomic. No fracture or dislocation. Mild radiocarpal degenerative changes. Left hip is intact. Pubic rami are intact. IMPRESSION: No fracture.
--- NOTE | 2019-10-21 21:26 | RADIOLOGY REPORT (SQ) ---
EXAM DESCRIPTION: XR WRIST 3 OR MORE VIEWS, XR HIP 2 OR MORE VIEWS, XR HAND 3 OR MORE VIEWS COMPLETED DATE/TME: 10/21/2019 19:53 (accession [id number]), 10/21/2019 19:57 (accession [id number]), 10/21/2019 19:53 (accession [id number]) CLINICAL HISTORY: 48 years, Female, Palpitations, fall, left hand wrist and shoulder p Findings: Bony alignment is anatomic. No fracture or dislocation. Mild radiocarpal degenerative changes. Left hip is intact. Pubic rami are intact. IMPRESSION: No fracture.
[2019-10-21 21:34] LABS: GLUCOSE 411 mg/dL (75-110)
--- NOTE | 2019-10-21 23:02 | ER Document Report ---
ED Fall - General Chief Complaint: Fall Stated Complaint: FALL/LEFT SIDE PAIN Time Seen by Provider: 10/21/19 19:53 Primary Care Provider: INGRIS PALOMO MD [Primary Care Provider] - Follow up in 3-5 days BELKIS RANGEL MD [ACTIVE STAFF] - Follow up tomorrow Mode of Arrival: Ambulatory Information source: Patient Notes: Patient is a 48-year-old female that comes to the emergency department for chief complaint of slipping and falling on water on the floor and target reportedly just prior to arrival. She states that when she fell she tried to catch herself with her left arm/hand, she landed on her left shoulder and hip as well. She denies any other areas of pain. She denies hitting her head, denies shortness of breath, chest pain, back pain, incontinence, focal numbness or weakness. She is not on a blood thinner. Past medical history includes hypertension, type 2 diabetes, asthma, bipolar/PTSD. TRAVEL OUTSIDE OF THE [place] IN LAST 30 DAYS: No - Related data Allergies/Adverse Reactions: oxycodone HCl [From Percocet] Allergy (Severe, Verified 10/21/19 19:43) resp azithromycin [From Zithromax] Allergy (Intermediate, Verified 10/21/19 19:43) resp codeine phosphate [From Codeine Phosphate Soluble] Allergy (Intermediate, Verified 10/21/19 19:43) resp hydrocodone Allergy (Mild, Verified 10/21/19 19:43) Anaphylaxis hydrocodone bitartrate [From Vicodin] Allergy (Verified 10/21/19 19:43) resp Home Medications: Cymbalta, Levemir, metformin, januvia, rexulti, buspirone, meloxicam, morphine, flexeril, trazodone, vitamin D Past Medical History - General Information source: Patient - Social History Smoking Status: Never Smoker Frequency of alcohol use: None Drug Abuse: None Family History: Arthritis, CVA, DM, Hyperlipidemia, Hypertension, Malignancy, Thyroid Disfunction - Past Medical History Cardiac Medical History: Reports: Hx Hypertension Pulmonary Medical History: Reports: Hx Asthma Neurological Medical History: Reports: Hx Cerebrovascular Accident - 2005, Hx Migraine Endocrine Medical History: Reports: Hx Diabetes Mellitus Type 2 GI Medical History: Reports: Hx Gastroesophageal Reflux Disease Musculoskeletal Medical History: Reports Hx Arthritis - fingers, NECK, Reports Hx Musculoskeletal Trauma Psychiatric Medical History: Reports: Hx Anxiety, Hx Bipolar Disorder, Hx Depression, Hx Post Traumatic Stress Disorder Traumatic Medical History: Reports: Hx Fractures Past Surgical History: Reports: Hx Abdominal Surgery - EXPLORATORY, Hx Bowel Surgery, Hx Section - x4, Hx Cholecystectomy, Other - Multiple fatty tumors removed from different areas of her body all benign - Immunizations Immunizations up to date: Yes Hx Diphtheria, Pertussis, Tetanus Vaccination: Yes - UNSURE Review of Systems - Review of Systems Constitutional: No symptoms reported EENT: No symptoms reported Cardiovascular: No symptoms reported Respiratory: No symptoms reported Gastrointestinal: No symptoms reported Genitourinary: No symptoms reported Female Genitourinary: No symptoms reported Musculoskeletal: See HPI Skin: No symptoms reported Hematologic/Lymphatic: No symptoms reported Neurological/Psychological: No symptoms reported Physical Exam - Vital signs Vitals: Temp Pulse Resp BP Pulse Ox 98.7 F 134 H 20 141/93 H 98 10/21/19 19:19 10/21/19 19:19 10/21/19 19:19 10/21/19 19:19 10/21/19 19:19 - Notes Notes: GENERAL: Alert, interacts well. No acute distress. HEAD: Normocephalic, atraumatic. EYES: Pupils equal, round, and reactive to light. Extraocular movements intact. ENT: Oral mucosa moist, tongue midline. Oropharynx unremarkable. Airway patent. NECK: Full range of motion. Supple. Trachea midline. No lymphadenopathy. LUNGS: Clear to auscultation bilaterally, no wheezes, rales, or rhonchi. No respiratory distress. Non-tender chest wall. No signs of trauma. HEART: Borderline tachycardic, normal rhythm, no murmur ABDOMEN: Soft, non-tender. Non-distended. Bowel sounds present in all 4 quadrants. No signs of trauma. GENITOURINARY: Deferred EXTREMITIES: There is some mild tenderness over palpation of the left hip but patient is able to ambulate without difficulty. No signs of trauma. There is some tenderness over the supraspinatus and left humerus area, full range of motion of the shoulders present. There is positive snuffbox tenderness and significant tenderness over the left wrist area. Normal distal neurovascular exam. Extremities unremarkable otherwise. BACK: No signs of trauma. No cervical, thoracic, lumbar midline tenderness. No saddle anesthesia, normal distal neurovascular exam. Moves all extremities in full range of motion. NEUROLOGICAL: Alert and oriented x3. Normal speech. Cranial nerves II through XII grossly intact. Strength 5/5 in all extremities. PSYCH: Normal affect, normal mood. SKIN: Warm, dry, normal turgor. No rashes or lesions noted. Course - Re-evaluation Re-evalutation: Patient was initially reported to be tachycardic, on my exam her heart rate is 100. Patient is smiling and talkative. Patient does move with some soreness, she does have some obvious pain mainly in the left wrist. She has snuffbox tenderness concerning for scaphoid injury. However her physical exam otherwise is unremarkable. There is no ecchymosis, swelling, or noted tenderness. Patient is ambulating without any difficulty. She has no abdominal pain, chest pain, head injury, focal numbness or weakness, or other concerning findings. X- rays reviewed and unremarkable with no concerning findings. CBC unremarkable, chemistry does show hyperglycemia without acidosis, this was rechecked after IV fluids and is much improved. Troponin was checked in triage and negative although patient denies any respiratory, chest, or any other cardiac symptoms with me. Patient states this is very common for her and she will follow-up with primary care in regards to her blood sugars. Patient does have a lot of t enderness of the left shoulder cuff area. Discussed plan, patient will be placed in thumb spica, sling, referred to orthopedics, and she is to return if she worsens in any way which was discussed in detail. Patient states appreciation and agreement with plan. - Vital Signs Vital signs: Temp Pulse Resp BP Pulse Ox 98.9 F 113 H 20 140/93 H 100 10/22/19 00:13 10/22/19 00:13 10/22/19 00:13 10/22/19 00:13 10/22/19 00:13 - Laboratory Result Diagrams: 10/21/19 20:48 10/21/19 20:48 Laboratory results interpreted by me: 10/21/19 10/21/19 10/21/19 20:48 20:48 23:45 RDW 15.0 H Sodium 135.7 L Chloride 97 L Glucose 411 H* POC Glucose 306 H Calcium 10.4 H Alkaline Phosphatase 150 H Total Protein 9.1 H Discharge - Discharge Clinical Impression: Left hip pain, Left wrist pain, Hyperglycemia Fall Qualifiers: Encounter type: initial encounter Qualified Code(s): W19.XXXA - Unspecified fall, initial encounter Left shoulder pain Qualifiers: Chronicity: acute Qualified Code(s): M25.512 - Pain in left shoulder Condition: Stable Disposition: HOME, SELF-CARE Additional Instructions: Your x-rays do not show any fractures or concerning findings, however your exam is concerning for possible fracture of the scaphoid, small bone in your wrist. As result you have been placed in a splint with the sling. Please wear the splint, call the orthopedic referral tomorrow, and follow-up closely with them for recheck and additional management of a possible fracture in your wrist. Your blood sugar was very high today, please follow with primary care for additional management of this. Take Tylenol and ibuprofen for pain, muscle relaxer as prescribed. Return for any concerning symptoms including severe worsening swelling or pain, difficulty breathing, develop numbness, passing out, or any other concerning symptoms. Prescriptions: Methocarbamol [Robaxin-750] 750 mg PO QID PRN #20 tablet PRN Reason: Referrals: INGRIS PALOMO MD [Primary Care Provider] - Follow up in 3-5 days BELKIS RANGEL MD [ACTIVE STAFF] - Follow up tomorrow
[2019-10-22] MEDS ORDERED: ONDANSETRON HCL INJ/PF 4 MG/2 ML SDV IV ONE (00:02)
[2019-10-22 00:14] VITALS: BP 140/93
--- NOTE | 2019-10-22 07:37 | EKG REPORT ---
SEVERITY:- OTHERWISE NORMAL ECG - SINUS TACHYCARDIA : Confirmed by: Milton Recinos MD 22-Oct-2019 07:36:22
== END 2019-10-22 00:10 | disposition home or self-care (01) ==
LOC: ER 19:15
DX: M25.532 Pain in left wrist (principal); M25.512 Pain in left shoulder; M25.552 Pain in left hip; W01.0XXA Fall on same level from slipping, tripping and stumbling without subsequent striking against object, initial encounter; Y92.512 Supermarket, store or market as the place of occurrence of the external cause; E11.65 Type 2 diabetes mellitus with hyperglycemia; I10 Essential (primary) hypertension; F41.9 Anxiety disorder, unspecified; F31.9 Bipolar disorder, unspecified; J45.909 Unspecified asthma, uncomplicated; Z79.899 Other long term (current) drug therapy; Z79.4 Long term (current) use of insulin; Z79.891 Long term (current) use of opiate analgesic
CPT/HCPCS: 93005; 99284; 96361; 96374; 36415; 87086; 82962; 83690; 85025; 87088; 80053; 84484; 87186; 71046; 73130; 73502; 73030; 73110; 93010; J2405; J7030

== ENCOUNTER → 2019-12-02 | Outpatient (CLI) | payer MEDICAID ==
--- NOTE | 2019-12-03 09:04 | RADIOLOGY REPORT (SQ) ---
EXAM DESCRIPTION: MRI LT UPPER JOINT WITHOUT IMAGES COMPLETED DATE/TIME: 12/02/2019 12:32 pm REASON FOR STUDY: M25.532 PAIN IN LEFT WRIST M25.532 PAIN IN LEFT WRIST COMPARISON: None. TECHNIQUE: Left wrist images acquired and stored on PACS. Multiplanar images include fat sensitive sequences as T1, fluid sensitive sequences as FST2/STIR, cartilage sensitive sequences as FSPD, gradi ent echo sequences. LIMITATIONS: None. FINDINGS: BONE MARROW: No alteration of signal to suggest marrow replacement or edema. No occult fra cture. No large osteophytes. CARPAL ALIGNMENT AND ARTICULATION: Normal congruity of sigmoid notch noting positive ulnar variance. Normal capitolunate angle. No widening of scapholunate articulation. EFFUSION: None noted. No loose bodies. SCAPHOLUNATE LIGAMENT: Intact without tear. LUNATE-TRIQUETRAL LIGAMENT: Intact without tear. TFC COMPLEX: Radial and ulnar attachments normal. Meniscus intact. Extensor carpi ulnaris tendon norm al without tendinopathy. EXTRINSIC LIGAMENTS AND DISTAL RADIO-ULNAR JOINT: Dorsal and volar distal RUJ intact without subluxat ion of the distal ulna. 1-6 EXTENSOR COMPARTMENTS: Normal. Specifically no tendinopathy of the abductor pollicis longus or ex tensor pollicis brevis to suggest de Quervain's Syndrome. CARPAL TUNNEL AND MEDIAN NERVE: Normal volume and morphology of the carpal tunnel proximally at the l evel of the radiocarpal joint and distally at the hook of the hamate. No thickening or signal alterat ion of the median nerve. OTHER: No other significant finding. IMPRESSION: Ulnar positive variance likely related to the patient's presenting symptoms of lateral w rist pain. No discrete tear or injury to the triangular fibrocartilage complex. TECHNICAL DOCUMENTATION: JOB ID: [id number] 2010 [employer]- All Rights Reserved Reading location - IP/workstation name: [email or web address]
== END ==
LOC: RAD 11:42
PROVIDERS: ATTEND Orthopaedic Surgery
DX: M25.532 Pain in left wrist (principal)